=== PATIENT | female | born 1970 | race Caucasian/White ===

== ENCOUNTER 2018-04-16 12:05 | Inpatient (IN) | payer MEDICARE, SELFPAY ==
[2018-04-16 12:59] LABS: HEMATOCRIT 53.8 % (36.0-47.0); HEMOGLOBIN 17.8 g/dl (12.0-15.5); MEAN CORPUSCULAR HEMOGLOBIN 31.3 pg (27.0-33.0); MEAN CORPUSCULAR HGB CONC 33.1 g/dl (32.0-36.5); MEAN CORPUSCULAR VOLUME 94.6 fl (80.0-96.0); PLATELET COUNT, AUTOMATED 199 10^3/uL (150-450); RED BLOOD COUNT 5.69 10^6/uL (4.00-5.40); RED CELL DISTRIBUTION WIDTH 13.7 % (11.5-14.5); WHITE BLOOD COUNT 12.7 10^3/uL (4.0-10.0)
[2018-04-16 13:26] LABS: CONTROL LINE HCG INT CTR LINE PRESENT; HCG, SERUM QUALITATIVE NEGATIVE (NEGATIVE)
[2018-04-16 13:33] LABS: AMPHETAMINES LEVEL URINE NEGATIVE (NEGATIVE); BARBITURATES URINE NEGATIVE (NEGATIVE); BENZODIAZEPINES URINE NEGATIVE (NEGATIVE); CANNABINOIDS URINE NEGATIVE (NEGATIVE); COCAINE METABOLITE URINE NEGATIVE (NEGATIVE); METHADONE URINE NEGATIVE (NEGATIVE); OPIATES URINE NEGATIVE (NEGATIVE); PHENCYCLIDINE URINE NEGATIVE (NEGATIVE)
[2018-04-16 14:02] LABS: ACETAMINOPHEN LEVEL < 2.0 UG/ML (10.0-30.0); ALBUMIN/GLOBULIN RATIO 1.25 (1.00-1.93); ALKALINE PHOSPHATASE 82 U/L (45-117); ALT/SGPT 36 U/L (12-78); ANION GAP 8 MEQ/L (8-16); AST/SGOT 16 U/L (7-37); BILIRUBIN,DIRECT 0.1 MG/DL (0.0-0.2); BILIRUBIN,TOTAL 0.4 MG/DL (0.2-1.0); BLOOD UREA NITROGEN 8 MG/DL (7-18); CALCIUM LEVEL 8.4 MG/DL (8.5-10.1); CARBON DIOXIDE LEVEL 28 MEQ/L (21-32); CHLORIDE LEVEL 104 MEQ/L (98-107); CREATININE FOR GFR 0.85 MG/DL (0.55-1.30); ETHYL ALCOHOL (ETHANOL) < 0.003 % (0.000-0.010); GLOMERULAR FILTRATION RATE > 60.0 (>58); GLUCOSE, FASTING 102 MG/DL (70-100); POTASSIUM SERUM 3.8 MEQ/L (3.5-5.1); SALICYLATE LEVEL 5.8 MG/DL (5.0-30.0); SODIUM LEVEL 140 MEQ/L (136-145); THYROID STIMULATING HORMONE 0.402 uIU/ML (0.358-3.740); TOTAL PROTEIN 7.2 GM/DL (6.4-8.2)
[2018-04-16] MEDS ORDERED: MAALOX 30 ML SUSP *UDC PO (16:45)
[2018-04-16] MEDS ORDERED: ACETAMINOPHEN TAB 650MG DOSE (2X325MG) PO (16:45)
[2018-04-16] MEDS ORDERED: traZODone 50 MG TAB PO (16:45)
[2018-04-16] MEDS ORDERED: MOM 30ML SUSPENSION UDC PO (16:45)
[2018-04-16] MEDS: ADVAIR HFA 115/21MCG INHALER INH (21:00)
[2018-04-17] MEDS: ADVAIR HFA 115/21MCG INHALER INH ×4 (00:22→20:58)
[2018-04-17] MEDS ORDERED: ALBUTEROL 90 MCG/ACT 8GM HFA INHALER INH (10:15)
[2018-04-17 11:57] LABS: KETONE, URINE AUTO RFX NEGATIVE (NEGATIVE); MUCUS, URINE RFX SMALL (NEGATIVE); NITRITE, URINE AUTO RFX NEGATIVE (NEGATIVE); RBC, URINE AUTO RFX 4 /HPF (0-3); SPECIFIC GRAVITY UR AUTO RFX 1.002 (1.002-1.035); SQUAM EPITHELIAL CELL UR AURFX 4 /HPF (0-6); WBC, URINE AUTO RFX 5 /HPF (0-3)
[2018-04-17 11:59] LABS: LEUKOCYTE ESTERASE UR AUTO RFX 2+ (NEGATIVE)
[2018-04-17 13:34] LABS: CHLAMYDIA DNA AMPLIFICATION NEGATIVE (NEGATIVE); GC DNA AMPLIFICATION NEGATIVE (NEGATIVE)
[2018-04-17] MEDS ORDERED: OLANZapine ORAL DISINTEGRATING TAB 5MG PO (15:30)
[2018-04-17] MEDS: PALIPERIDONE 3 MG ER TAB (INVEGA) PO (20:59)
[2018-04-18 07:25] LABS: HEMOGLOBIN 16.5 g/dl (12.0-15.5); MEAN CORPUSCULAR HEMOGLOBIN 31.2 pg (27.0-33.0); MEAN CORPUSCULAR VOLUME 94.5 fl (80.0-96.0); PLATELET COUNT, AUTOMATED 182 10^3/uL (150-450); RED BLOOD COUNT 5.29 10^6/uL (4.00-5.40); RED CELL DISTRIBUTION WIDTH 13.8 % (11.5-14.5); WHITE BLOOD COUNT 9.5 10^3/uL (4.0-10.0)
[2018-04-18 07:56] LABS: ALBUMIN 3.7 GM/DL (3.2-5.2); ALBUMIN/GLOBULIN RATIO 1.28 (1.00-1.93); ALKALINE PHOSPHATASE 73 U/L (45-117); ALT/SGPT 33 U/L (12-78); ANION GAP 8 MEQ/L (8-16); AST/SGOT 16 U/L (7-37); BILIRUBIN,TOTAL 0.5 MG/DL (0.2-1.0); BLOOD UREA NITROGEN 10 MG/DL (7-18); CARBON DIOXIDE LEVEL 27 MEQ/L (21-32); CHLORIDE LEVEL 107 MEQ/L (98-107); GLOMERULAR FILTRATION RATE > 60.0 (>58); GLUCOSE, FASTING 95 MG/DL (70-100); POTASSIUM SERUM 4.4 MEQ/L (3.5-5.1); SODIUM LEVEL 142 MEQ/L (136-145); TOTAL PROTEIN 6.6 GM/DL (6.4-8.2)
[2018-04-18] MEDS: ADVAIR HFA 115/21MCG INHALER INH ×2 (09:04→20:38)
[2018-04-18] MEDS: PALIPERIDONE 3 MG ER TAB (INVEGA) PO ×2 (09:04→20:38)
[2018-04-19] MEDS: PALIPERIDONE 3 MG ER TAB (INVEGA) PO ×2 (08:03→22:27)
[2018-04-19] MEDS: ADVAIR HFA 115/21MCG INHALER INH ×2 (08:03→22:28)
[2018-04-19] MEDS: LORazepam 1 MG TAB PO (09:20)
[2018-04-19 10:12] LABS: HEPATITIS B SURFACE ANTIGEN NEGATIVE (NEGATIVE)
[2018-04-19 10:31] LABS: HEPATITIS C VIRUS ABY INDEX 0.1 INDEX (<0.8)
[2018-04-19 10:32] LABS: HEPATITIS B CORE ANTIBODY IGM NEGATIVE (NEGATIVE); HIV 1&2 SCREEN CENTAUR NEGATIVE (NEGATIVE)
[2018-04-19 10:33] LABS: HEPATITIS A ANTIBODY IGM NEGATIVE (NEGATIVE)
[2018-04-19] MEDS: PALIPERIDONE PALMITATE 234 MG/1.5 ML INJ (INVEGA SUSTENNA)(J2426) IM (11:44)
[2018-04-20] MEDS: ADVAIR HFA 115/21MCG INHALER INH ×2 (08:58→21:02)
[2018-04-20] MEDS: PALIPERIDONE 3 MG ER TAB (INVEGA) PO ×2 (08:58→21:01)
[2018-04-20] MEDS: HYDROCORTISONE 1% CREAM 30 GM TOP (21:33)
[2018-04-21] MEDS: PALIPERIDONE 3 MG ER TAB (INVEGA) PO ×2 (08:29→20:32)
[2018-04-21] MEDS: ADVAIR HFA 115/21MCG INHALER INH ×2 (08:29→20:33)
[2018-04-22] MEDS: ADVAIR HFA 115/21MCG INHALER INH ×2 (08:41→21:06)
[2018-04-22] MEDS: PALIPERIDONE 3 MG ER TAB (INVEGA) PO ×2 (08:41→21:06)
[2018-04-23] MEDS: ADVAIR HFA 115/21MCG INHALER INH ×2 (08:06→20:15)
[2018-04-23] MEDS: PALIPERIDONE 3 MG ER TAB (INVEGA) PO ×2 (08:06→20:15)
[2018-04-23] MEDS: HYDROCORTISONE 1% CREAM 30 GM TOP (13:29)
[2018-04-24] MEDS: PALIPERIDONE 3 MG ER TAB (INVEGA) PO (08:03)
[2018-04-24] MEDS: ADVAIR HFA 115/21MCG INHALER INH (08:03)
[2018-04-24] MEDS: HYDROCORTISONE 1% CREAM 30 GM TOP (08:03)
[2018-04-24] MEDS: PALIPERIDONE PALMITATE 156 MG/1ML INJ(INVEGA SUSTENNA)(J2426) IM (10:09)
== END 2018-04-24 13:45 | disposition home or self-care (01) | DRG 885 ==
LOC: M PSY 04-17 15:41 → M ED 12:05 → M ED INP 16:32 → M PSY 17:14
DX: F25.9 Schizoaffective disorder, unspecified (principal); Z68.41 Body mass index [BMI] 40.0-44.9, adult; Z88.8 Allergy status to other drugs, medicaments and biological substances; G47.00 Insomnia, unspecified; F17.200 Nicotine dependence, unspecified, uncomplicated; J45.909 Unspecified asthma, uncomplicated; F31.9 Bipolar disorder, unspecified; D72.829 Elevated white blood cell count, unspecified; E66.9 Obesity, unspecified

== ENCOUNTER 2021-06-15 17:23 | Inpatient (IN) | payer MEDICARE, OTHER, SELFPAY ==
[~2021-06-15] VITALS: Ht 157.5 cm; Wt 87.7 kg
[~2021-06-15 17:23] MED LIST: ABIL10TA9 PO; BREO1INH3 INH; INVE234I IM; LAMI25TA PO; ZOLO50TA PO
[2021-06-15] MEDS ORDERED: OLANZapine ORAL DISINTEGRATING TAB 5MG PO ONE (18:00)
[2021-06-15 18:28] LABS: HEMATOCRIT 50.9 % (36.0-47.0); MEAN CORPUSCULAR HEMOGLOBIN 31.5 pg (27.0-33.0); MEAN CORPUSCULAR HGB CONC 33.4 g/dl (32.0-36.5); MEAN CORPUSCULAR VOLUME 94.3 fl (80.0-96.0); PLATELET COUNT, AUTOMATED 200 10^3/uL (150-450); WHITE BLOOD COUNT 10.5 10^3/uL (4.0-10.0)
[2021-06-15 19:00] LABS: ACETAMINOPHEN LEVEL < 2.0 UG/ML (10.0-30.0); ALBUMIN 3.7 GM/DL (3.2-5.2); ALT/SGPT 29 U/L (12-78); BILIRUBIN,DIRECT 0.1 MG/DL (0.0-0.2); BILIRUBIN,TOTAL 0.4 MG/DL (0.2-1.0); BLOOD UREA NITROGEN 11 MG/DL (7-18); CALCIUM LEVEL 8.9 MG/DL (8.5-10.1); CARBON DIOXIDE LEVEL 29 MEQ/L (21-32); CHLORIDE LEVEL 106 MEQ/L (98-107); CREATININE FOR GFR 0.76 MG/DL (0.55-1.30); ETHYL ALCOHOL (ETHANOL) < 0.003 % (0.000-0.010); GLOMERULAR FILTRATION RATE > 60.0 (>51); GLUCOSE, FASTING 86 MG/DL (70-100); POTASSIUM SERUM 3.7 MEQ/L (3.5-5.1); SALICYLATE LEVEL 5.7 MG/DL (5.0-30.0); SODIUM LEVEL 141 MEQ/L (136-145); THYROID STIMULATING HORMONE 0.547 uIU/ML (0.358-3.740); TOTAL PROTEIN 6.9 GM/DL (6.4-8.2)
[2021-06-15 20:44] LABS: AMPHETAMINES LEVEL URINE NEGATIVE (NEGATIVE); BARBITURATES URINE NEGATIVE (NEGATIVE); BENZODIAZEPINES URINE NEGATIVE (NEGATIVE); CANNABINOIDS URINE NEGATIVE (NEGATIVE); COCAINE METABOLITE URINE NEGATIVE (NEGATIVE); METHADONE URINE NEGATIVE (NEGATIVE); OPIATES URINE NEGATIVE (NEGATIVE); PHENCYCLIDINE URINE NEGATIVE (NEGATIVE)
[2021-06-15 20:52] LABS: RSV AMPLIFICATION NEGATIVE (NEGATIVE)
[2021-06-15] MEDS ORDERED: traZODone 50 MG TAB PO PRN (21:30)
[2021-06-15] MEDS ORDERED: OLANZapine ORAL DISINTEGRATING TAB 5MG PO PRN (21:30)
[2021-06-15] MEDS ORDERED: MAALOX 30 ML SUSP *UDC PO PRN (21:30)
[2021-06-15] MEDS ORDERED: ACETAMINOPHEN TAB 650MG DOSE (2X325MG) PO PRN (21:30)
[2021-06-15] MEDS ORDERED: MOM 30ML SUSPENSION UDC PO PRN (21:30)
--- NOTE | 2021-06-16 08:22 | MHHPEPDOC ---
General Date Of Admission: Jun 16, 2021 Legal Status: 9.39 Chief Complaint "why am I here" History of Present Illness HISTORY OF THE PRESENT ILLNESS: Patient is a 50 -year-old , female, who why a history of bipolar disorder, schizoaffective disorder and multiple inpatient admissions to [facility], last admission Apr 24 2018 for 4-5 days for acute psychosis. Patient is tangential, disorganized and paranoid on interview. States she called the police to report a crime, "it's too entailed for you to listen to, has to do with origins of covid, the police selling secrets". "There was a terrorist cell operating out of [facility]". Patient goes on to discuss multiple conspiracy theories and poorly cooperative to interview. Psychiatric Review of Systems Diane (4 or more days of): grandiosity Psychosis: auditory hallucination, visual hallucination, delusions, paranoia, disorganization Past Psychiatric History Previous Psychiatric Diagnosis: schizoaffective disorder Previous Psychiatric Admissions: Suicide Attempts: . Psychiatric Follow-up: "I don't, I don't want" Psychiatric medications: . t Psychiatric History Previous Psychiatric Diagnosis: schizoaffective d/o Previous Psychiatric Admissions: multiple admissions to various units in the past [facility] twice in 2017 for psychosis Suicide Attempts: none known Psychiatric Follow-up: javi , non-compliant Psychiatric medications: abilify per but non-compliant 6 months Past Medical History Medical Problems hx perforated diverticulitis, asthma Head Injury: No Seizures: No Hospitalizations: Yes Surgeries: Yes Family Medical/Psychiatric HX Medical Problems non-contributory Psychiatric Disorders: No Addiction: No Suicide Attemps/Completions: No Addiction History nicotine, cocaine (hx per chart review) Social History Per chart review, Dr Sosa, H and P 2018: "Childhood: raised [place] Abuse/Trauma: none known Current Living Situation: lives with near [facility] Education: high school edu Employment: [employer] Social Support: Legal: none known Marital: , no kids" per care summary Lives in [facility] and single. Mental Status Examination General Appearance: unkempt Build: overweight Demeanor: mistrustful, preoccupied, guarded Eye Contact: intense Activity: agitated, anxious Behavior: uncooperative, resistant, agitated Speech: spontaneous Mood: anxious, angry Affect: labile, hostile, disorganized Thought Process: tangential, racing Thought Content (Delusions): grandiose, persecutory, somatic, paranoia, delusions Thought Content (Other): preoccupied, guarded, phobic Thought Content (Aggressive): none reported Perception (Hallucinations): none reported Perception (Other): none reported Cognition (Impairment of): ability to abstract Cognition(Intelligence Est.): average Oriented: Awake, Alert, Oriented times three Insight: poor Judgment: Poor Psychosis: Psychotic Perceptions Diagnoses Schizoaffective disorder per hx Tobacco use disorder A-FIB/CHADSVASC A-FIB History Current/History of A-Fib/PAF?: No Current PO Anticoag Therapy: No Age/Risk Factor Scoring CHADSVASC: CHADSVASC Response (Comments) Value Age Risk Factor Age < 65 years old 0 Gender Risk Factor Female 1 Hx of CHF No 0 Hx of HTN No 0 Hx of Stroke/TIA/or VTE No 0 Hx of Diabetes No 0 Hx of Vascular Disease No 0 Total 1 Treatment Treatment ordered: NONE Reason Anticoagulant not given: Other (defer to hospitalist team) Other reason anticoagulant not: defer to hospitalist team Assessment Likely decompensation in context of non-compliance with outpatient treatment/medications. Initial Treatment Plan 1. Patient was admitted on a [9.39] status. 2. Complete history was obtained. 3. With patients permission, family will be contacted and database will be expanded. 4. Patients medication regimen will be reviewed and changed accordingly. 5. Patient will be provided with protected environment. 6. Patient will be treated with individual, group, and milieu therapies. 7. Patient will receive supportive psych-education. 8. Discharge planning will commence immediately. 9. Outpatient follow-up treatment will be strongly recommended. 10. The initial treatment plan will focus initially on: * Depression. * Risk for suicide. ESTIMATED LENGTH OF STAY: 5-10 DAYS. TIME SPENT COUNSELING AND COORDINATING INITIAL CARE: 60 minutes. Tobacco Cessation Screen If Patient is a Smoker yes Tobacco Cessation Tx Ordered?: Yes Ordered/Pending Vital Signs Vital Signs Date Time Temp Pulse Resp B/P (MAP) Pulse Ox O2 Delivery O2 Flow Rate FiO2 06/16/21 03:21 97.4 89 20 135/88 (104) 99 Room Air Laboratory Data 24H Labs Laboratory Tests 2 06/15/21 18:19: Nucleated Red Blood Cells % (auto) 0.0, Anion Gap 6L, Glomerular Filtration Rate > 60.0, Calcium Level 8.9, Total Bilirubin 0.4, Direct Bilirubin 0.1, Aspartate Amino Transf (AST/SGOT) 14, Alanine Aminotransferase (ALT/SGPT) 29, Alkaline Phosphatase 89, Total Protein 6.9, Albumin 3.7, Albumin/Globulin Ratio 1.2, Thyr oid Stimulating Hormone (TSH) 0.547, Salicylates Level 5.7, Acetaminophen Level < 2.0L, Ethyl Alcohol Level < 0.003 06/15/21 19:54: Urine Opiates Screen NEGATIVE, Urine Methadone Screen NEGATIVE, Urine Barbiturates Screen NEGATIVE, Urine Phencyclidine Screen NEGATIVE, Urine Amp hetamines Screen NEGATIVE, Urine Benzodiazepines Screen NEGATIVE, Urine Cocaine Metabolite Screen NEGATIVE, Urine Cannabinoids Screen NEGATIVE 06/15/21 19:55: Coronavirus (COVID-19)(PCR) NEGATIVE, Influenza Type A (RT-PCR) NEGATIVE, Influenza Type B (RT-PCR) NEGATIVE, Respiratory Syncytial Virus (PCR) NEGATIVE CBC/BMP Laboratory Tests 06/15/21 18:19 Medications Scheduled Fluticasone/Vilanterol (Breo Ellipta 200-25 Mcg INH) 1 Inh Inh, 1 PUFF INH DAILY, (Reported) Paliperidone Palmitate (Invega Sustenna) 234 Mg/1.5 Ml Inj, 234 MG IM QMONTH for psychosis Allergies Coded Allergies: quetiapine (Unverified Allergy, Unknown, 06/15/21) TIM SCHMITT MD Jun 16, 2021 08:22
[2021-06-16] MEDS: NICOTINE 21MG/24HR 1 EA TRANSDERMAL TD SCH (09:00)
[2021-06-16 17:10] VITALS: BP 130/71
--- NOTE | 2021-06-16 18:57 | HPEPDOC ---
[facility] Medical History & Physical Date of Admission Jun 16, 2021 Date of Service: Jun 16, 2021 History and Physical CHIEF COMPLAINT: psychosis HISTORY OF PRESENT ILLNESS: Patient is a 50-year-old female with a past medical history of bipolar disorder and schizoaffective disorder with a history of frequent admissions for psychiatric issues. Patient is not particularly forthcoming during my examination denies prior medical or surgical history. I feel that she is quite suspicious of me during my examination. Patient denies any chest pain, palpitations, nausea, vomiting, diarrhea, fevers or chills. PAST MEDICAL HISTORY: Schizoaffective Bipolar disorder PAST SURGICAL HISTORY: Tubal ligation SOCIAL HISTORY: History of cocaine use per chart review Patient is an active daily smoker Denies alcohol use FAMILY HISTORY: Patient reports heart disease diabetes and lung disease in her family ALLERGIES: Please see below. REVIEW OF SYSTEMS: 10 point ROS conducted, relevant findings are noted in the HPI HOME MEDICATIONS: Please see below. PHYSICAL EXAMINATION: VITAL SIGNS: please see below General: NAD, comfortable HEENT: PERRLA, EOMI, sclerae clear Neck: supple, normal ROM, no JVD Respiratory: lungs CTAB, no wheeze, no rales, no crackles CVS: RRR, normal S1, S2, no murmurs Abdo: soft, no masses, no hepatosplenomegaly, BS+, no rebound tenderness Extremities: no edema, pulses 2+ MSK: no joint deformities, normal ROM Neuro: no focal neuro deficits, moving all 4 extremities, CN2-12 intact. Strength 5/5 in all 4 extremities. No nystagmus. Psych: calm, cooperative, AAO x 3 LABORATORY DATA: See below. MICROBIOLOGY: Please see below. ASSESSMENT: Patient is a 50-year-old female with a past medical history of bipolar disorder and schizoaffective disorder with a history of frequent admissions for psychiatric issues. Patient is not particularly forthcoming during my examination denies prior medical or surgical history. I feel that she is quite suspicious during my examination. Patient denies any chest pain palpitations nausea vomiting diarrhea fevers or chills. . PLAN: Acute psychosis: Per psychiatry Leukocytosis: WBC elevated 10.5. Patient denies any physical symptoms, no cough, no dysuria, no suprapubic tenderness, no increased frequency. We will repeat in the morning. Thank you for consulting us please reconsult as needed. Vital Signs Vital Signs Date Time Temp Pulse Resp B/P (MAP) Pulse Ox O2 Delivery O2 Flow Rate FiO2 06/16/21 17:10 98.3 81 18 130/71 (90) 95 Room Air Laboratory Data Labs 24H Laboratory Tests 2 06/15/21 19:54: Urine Opiates Screen NEGATIVE, Urine Methadone Screen NEGATIVE, Urine Barbiturates Screen NEGATIVE, Urine Phencyclidine Screen NEGATIVE, Urine Amphetamines Screen NEGATIVE, Urine Benzodiazepines Screen NEGATIVE, Urine Cocaine Metabolite Screen NEGATIVE, Urine Cannabinoids Screen NEGATIVE 06/15/21 19:55: Coronavirus (COVID-19)(PCR) NEGATIVE, Influenza Type A (RT-PCR) NEGATIVE, Influenza Type B (RT-PCR) NEGATIVE, Respiratory Syncytial Virus (PCR) NEGATIVE Home Medications Scheduled Fluticasone/Vilanterol (Breo Ellipta 200-25 Mcg INH) 1 Inh Inh, 1 PUFF INH DAILY Paliperidone Palmitate (Invega Sustenna) 234 Mg/1.5 Ml Inj, 234 MG IM QMONTH for psychosis Allergies Coded Allergies: quetiapine (Unverified Allergy, Unknown, 06/15/21) A-FIB/CHADSVASC A-FIB History Current/History of A-Fib/PAF?: No Age/Risk Factor Scoring CHADSVASC: CHADSVASC Response (Comments) Value Age Risk Factor Age < 65 years old 0 Gender Risk Factor Female 1 Hx of CHF No 0 Hx of HTN No 0 Hx of Stroke/TIA/or VTE No 0 Hx of Diabetes No 0 Hx of Vascular Disease No 0 Total 1 JOSÉ MIGUEL ADAMS MD Jun 16, 2021 18:57
[2021-06-16] MEDS: risperiDONE 1 MG TAB PO SCH (20:50)
[2021-06-16] MEDS ORDERED: PALIPERIDONE 3 MG ER TAB (INVEGA) PO SCH (21:00)
[2021-06-17 06:31] VITALS: BP 150/90
[2021-06-17] MEDS: NICOTINE 21MG/24HR 1 EA TRANSDERMAL TD SCH (08:30)
--- NOTE | 2021-06-17 09:56 | MHIPNPDOC ---
[facility] Progress Note Progress Note DATE OF SERVICE: 06/17/21 HISTORY: Patient is a 50 -year-old , female, who why a history of bipolar disorder, schizoaffective disorder and multiple inpatient admissions to [facility], last admission Apr 24 2018 for 4-5 days for acute psychosis. Patient is tangential, disorganized and paranoid on interview. States she called the police to report a crime, "it's too entailed for you to listen to, has to do with origins of covid, the police selling secrets". "There was a terrorist cell operating out of [facility]". Patient goes on to discuss multiple conspiracy theories and poorly cooperative to interview. Interval: Patient states she is doing fine, then goes on asking why she is in the hospital for mental illness "there's nothing wrong with me, states she is irritable and then asked what the test data developer new about her symptoms as police psychiatrist, states she is currently being harassed by the police and that she was not giving enough answers about why she came in, reviewed admission report with patient, despite this states she had a "date with og [place] before 911, since this time Americans have treated my life like sh*t" and goes on to talk about how she knows people of been cloned, and has evidence for these procedures. States she refuses medications, was made aware that if she does not take medications to pursue a court order, continues to be irritable and aggressive interview was ended early. VITAL SIGNS: See below. NEW TEST RESULTS: Urinalysis negative CURRENT MEDICATIONS: See below. MENTAL STATUS EXAMINATION: Patient is a 50-year old female, who is present no acute distress, sitting in chair very irritable intense eye contact, yelling at times Speech: Is increased rate, increased volume increased amount, Language skills are fair Thought processes including: Circumstantial Thought content: Patient highly irritable about being admitted, perseverates on wanting discharge and stated she does not need medications abstract reasoning, and computation: Poor description of associations: poor Description of abnormal or psychotic thoughts: Patient highly paranoid Judgment: Poor Insight: Poor Orientation: Times 3 Recent and remote memory: Fair Attention span and concentration: Fair Language: chilean Fund of knowledge: average Mood: "mad" Affect: Paranoid, angry, irritable, grandiose DIAGNOSES: Schizoaffective disorder per hx Tobacco use disorder ASSESSMENT: Patient continues to refuse medications, will pursue TOO, order placed, note in place, pending other provider review. Patient continues to be grossly psychotic and disorganized, primarily paranoid with grandiose delusions. He is extended stay for acute stabilization. Ended meeting early due to patient becoming increasingly hostile and aggressive verbally. MANAGEMENT PLAN: Patient needs continued stay in hospital for safety, continue medications, patient refusing medications. TIME SPENT: 20 minutes. Vital Signs Vital Signs Date Time Temp Pulse Resp B/P (MAP) Pulse Ox O2 Delivery O2 Flow Rate FiO2 06/17/21 08:01 Room Air 06/17/21 06:31 98.2 77 20 150/90 (110) 95 Laboratory Data 24H Labs Laboratory Tests 2 06/16/21 20:32: Urine Color STRAW, Urine Appearance CLEAR, Urine pH 5.0, Urine Specific [place] 1.005, Urine Protein NEGATIVE, Urine Glucose (UA) NEGATIVE, Urine Ketones NEGATIVE, Urine Blood NEGATIVE, Urine Nitrite NEGATIVE, Urine Bilirubin NEGATIVE, Urine Urobilinogen 0.2, Urine Leukocyte Esterase TRACEH, Urine WBC (Auto) 1, Urine RBC (Auto) 0, Urine Hyaline Casts (Auto) 0, Urine Bacteria (Auto) NEGATIVE, Urine Squamous Epithelial Cells 2, Urine Sperm (Auto) Current Medications Current Medications Medications (Trade) Dose Ordered Sig/Master Route PRN Reason Start Time Stop Time Status Last Admin Dose Admin Acetaminophen (Tylenol Tab) 650 mg Q6HP PRN PO HEADACHE or MILD DISCOMFORT 06/15/21 21:30 Al Hydrox/Mg Hydrox/Simethicone (Mylanta) 30 ml Q4HP PRN PO HEARTBURN/INDIGESTION 06/15/21 21:30 Magnesium Hydroxide (Milk Of Magnesia) 30 ml DAILYPRN PRN PO CONSTIPATION 06/15/21 21:30 Nicotine (Nicoderm Cq 21mg) 1 patch DAILY TD 06/16/21 09:00 Olanzapine (ZyPREXA ZYDIS) 10 mg Q4HP PRN PO AGITATION/ANXIETY 06/15/21 21:30 Paliperidone (Invega) 3 mg QHS PO 06/16/21 21:00 Cancel Risperidone (RisperDAL) 1 mg QHS PO 06/16/21 21:00 Trazodone HCl (Desyrel) 50 mg QHSP PRN PO INSOMNIA 06/15/21 21:30 Allergies Coded Allergies: quetiapine (Unverified Allergy, Unknown, 06/15/21) TIM SCHMITT MD Jun 17, 2021 09:56
--- NOTE | 2021-06-17 16:24 | REM ---
Date: Jun 17, 2021 EVAL FOR TREAMENT OVER OBJ Evaluation for Treatment Over Objection 2020 Patient: Viki Mancilla MR# [id number] : 1970 DOA: 06/15/21 Legal Status: Involuntary - 9.39 Nearest Relative: Name: Relationship Address 1) [id number] Section I Clinical Assessment: Clinical Summary/ History of present illness: Patient is a 50-year-old woman with extensive history of schizoaffective disorder, bipolar disorder and multiple inpatient admissions to [facility], last admission Apr 24 2018 for 4-5 days for acute psychosis. Patient is tangential, disorganized and paranoid on i nterview. On admission stated she called the police to report a crime, "it's too entailed for you to listen to, has to do with origins of [employer], the police selling secrets". "There was a terrorist cell operating out of [facility]". Patient goes on to discuss multiple conspiracy theories and poorly cooperative to interview. On further interview does endorse that she is involved with having lunch with [place], continues to have grandiose delusions. Refuses medications stating she does not have a mental health condition. She is very irritable and agitated. Patient poses a risk of danger to self and others if not stabilized on psychiatric medications for her primary psychotic disorder. Diagnosis: Schizoaffective disorder, unspecified type Section II- Proposed Treatment: Offer oral medications including Haldol 5-30 milligrams daily, pro lixin 2-25 mg daily, risperidone 0.5- 16 mg daily, Zyprexa 5 to 30 mg daily, Thorazine 5 to 2000 mg daily, paliperidone 3 to 12 mg daily, aripiprazole 10-30 mg daily, lithium 300 to 1200 mg daily, valproic acid 750 to 2000 mg daily. Treatment recommended by treating physician should the patient refuse oral medication regimen as ordered by physician: Begin with short acting intramuscular medications such as Haldol 5mg- 20mg daily, Prolixin 5mg-20mg daily, Zyprexa 5mg-30mg daily or Thorazine 5mg- 400mg daily Introduce long acting intramuscular medications such as Haldol decanoate 50mg-100mg every 2 weeks, Prolixin decanoate 25mg-100mg every 2 weeks, Risperdal Consta 25mg-50mg every 2 weeks or Sustenna 117mg-234mg every 1-3 weeks once appropriate titration of short acting medication has been reached, aripiprazole 400 mg every 3-4 weeks Patient may require a combination of both short and long acting medication during the titration period in order to control symptoms and determine most effective maintenance dosage for long acting medication Medication for EPS including cogentin 1 mg to 6 mg daily, diphenhydramine 25 mg to 300 mg daily oral or IM 1. Reasonable alternative, if any are: None 2. Has the patient been tried on proposed treatment? The patient is currently refusing any psychotropic medications. 3. Has the patient been tried on other treatments? none 5) Anticipated benefits for proposed treatment: Reduction of psychotic/manic symptoms, increased ability to organize his thoughts, reduce agitation, especially in regards to taking his medications. The benefits for the patient taking medications at this early stage will improve acute and custodial prognosis. It will improve her ability to communicate/function without being acutely psychotic, manic, disorganized thinking, paranoia, grandiose delusions. The treatment teams hope is that patient will return to being able to function in the community once stabilized. 6) Reasonably foreseeable adverse effects are: Neuroleptic Malignant Syndrome, tardive Dyskinesia, over-sedation, gynecomastia, sexual side effects, orthostatic hypotension, tardive dyskinesia, acute dystonia, metabolic side effects, weight gain, akathisia, PCOS, pancreatitis, hepatitis, decreased white blood cell counts, risk for Avila-Vitaliy syndrome. 7)Prognosis without treatment is: The patient will remain with current symptoms likely leading to continued exacerbation of illness. She will potentially require additional/continued hospitalization, and the propensity exists that it will be more difficult to bring the patient back to baseline behavior and functioning. Patient will remain at risk of danger to self or others. Section III- Patients capacity: 1) Explained to the patient: ___X___Yes No a)Condition ___X___Yes No b)Proposed treatment ___X____Yes No c)Anticipated benefits of treatment ___X___Yes No d)Risks of adverse effects of treatment ___X___Yes No e)Availability ( if any) of other treatments and comparison of benefits and risks with proposed treatment. ___X____Yes No f)Risk if no treatment ____X___Yes No Patient denies having any psychiatric illness, despite endorsing grandiose delusions on interview, increasingly becoming irritable and agitated, extensive history of mental illness. Patient exhibits grandiose delusions, disorganized thought process, irritable and agitated mood which is labile. 2: State the nature of the patients objections to proposed treatment: This patient does not believe she needs medication, and does not feel he is mentally ill. 3) Patients capacity to make decisions on their treatment. Patient denies that she is mentally ill and believes she does not require medications in context of acute paranoia. Section IV- Likelihood of Dangerous Behavior: 1. The patient is believed to be dangerous to others at the hospital unless treated. ___X___Yes No 2. The patient is believed to likely be dangerous to self if not treated. ____X__Yes No Section V: Any other information or comments: TIM SCHMITT MD Jun 17, 2021 16:24
[2021-06-17] MEDS: risperiDONE 1 MG TAB PO SCH (21:00)
[2021-06-18 06:37] VITALS: BP 141/86
[2021-06-18] MEDS: NICOTINE 21MG/24HR 1 EA TRANSDERMAL TD SCH (09:00)
--- NOTE | 2021-06-18 11:38 | MHIPNPDOC ---
[facility] Progress Note Progress Note DATE OF SERVICE: 06/18/21 HISTORY: Patient is a 50 -year-old , female, who why a history of bipolar disorder, schizoaffective disorder and multiple inpatient admissions to [facility], last admission Apr 24 2018 for 4-5 days for acute psychosis. Patient is tangential, disorganized and paranoid on interview. States she called the police to report a crime, "it's too entailed for you to listen to, has to do with origins of covid, the police selling secrets". "There was a terrorist cell operating out of [facility]". Patient goes on to discuss multiple conspiracy theories and poorly cooperative to interview. Interval: Patient is irritable, yelling stating she has been detained illegally and that there are secret government systems that we need to look into [facility], states she predicted covid outbreak and has seeker information on her phone that she can share with us. Nursing barrow worker helper was present. Was explained to patient that TOO has been started, as she is refusing medications which can help her with paranoia, psychotic symptoms. Patient was poorly cooperative to interview, resistant did not allow for many questions to be asked. VITAL SIGNS: See below. NEW TEST RESULTS: Urinalysis negative CURRENT MEDICATIONS: See below. MENTAL STATUS EXAMINATION: Patient is a 50-year old female, who is present no acute distress, sitting in chair very irritable intense eye contact, yelling at times Speech: Is increased rate, increased volume, increased amount, was yelling for most of interview Language skills are poor Thought processes including: Circumstantial Thought content: Patient highly irritable about being admitted, perseverates on wanting discharge and stated she does not need medications abstract reasoning, and computation: Poor description of associations: poor Description of abnormal or psychotic thoughts: Patient highly paranoid Judgment: Poor Insight: Poor Orientation: Times 3 Recent and remote memory: Fair Attention span and concentration: Fair Language: italian Fund of knowledge: average Mood: "I'm angry, am I not allowed to be angry" Affect: Paranoid, grandiose delusions, inappropriate DIAGNOSES: Schizoaffective disorder per hx Tobacco use disorder ASSESSMENT: No change, patient continues to refuse medications, will pursue TOO, order placed, note in place, pending other provider review. Patient continues to be grossly psychotic and disorganized, primarily paranoid with grandiose delusions. He is extended stay for acute stabilization. Ended meeting early due to patient becoming increasingly hostile and aggressive verbally. MANAGEMENT PLAN: Patient needs continued stay in hospital for safety, continue medications, patient refusing medications. TIME SPENT: 15 minutes. Vital Signs Vital Signs Date Time Temp Pulse Resp B/P (MAP) Pulse Ox O2 Delivery O2 Flow Rate FiO2 06/18/21 08:23 Room Air 06/18/21 06:37 98.3 100 18 141/86 (104) 98 Current Medications Current Medications Medications (Trade) Dose Ordered Sig/Master Route PRN Reason Start Time Stop Time Status Last Admin Dose Admin Acetaminophen (Tylenol Tab) 650 mg Q6HP PRN PO HEADACHE or MILD DISCOMFORT 06/15/21 21:30 Al Hydrox/Mg Hydrox/Simethicone (Mylanta) 30 ml Q4HP PRN PO HEARTBURN/INDIGESTION 06/15/21 21:30 Magnesium Hydroxide (Milk Of Magnesia) 30 ml DAILYPRN PRN PO CONSTIPATION 06/15/21 21:30 Nicotine (Nicoderm Cq 21mg) 1 patch DAILY TD 06/16/21 09:00 Olanzapine (ZyPREXA ZYDIS) 10 mg Q4HP PRN PO AGITATION/ANXIETY 06/15/21 21:30 Paliperidone (Invega) 3 mg QHS PO 06/16/21 21:00 Cancel Risperidone (RisperDAL) 1 mg QHS PO 06/16/21 21:00 Trazodone HCl (Desyrel) 50 mg QHSP PRN PO INSOMNIA 06/15/21 21:30 Allergies Coded Allergies: quetiapine (Unverified Allergy, Unknown, 06/15/21) TIM SCHMITT MD Jun 18, 2021 11:38
[2021-06-18 18:27] VITALS: BP 159/84
[2021-06-18] MEDS: risperiDONE 1 MG TAB PO SCH (21:00)
[2021-06-19 06:40] VITALS: BP 160/81
[2021-06-19] MEDS: NICOTINE 21MG/24HR 1 EA TRANSDERMAL TD SCH (08:42)
--- NOTE | 2021-06-19 11:38 | MHIPNPDOC ---
[facility] Progress Note Progress Note DATE OF SERVICE: 06/19/21 HISTORY: Patient is a 50 -year-old , female, who why a history of bipolar disorder, schizoaffective disorder and multiple inpatient admissions to [facility], last admission Apr 24 2018 for 4-5 days for acute psychosis. Patient is tangential, disorganized and paranoid on interview. States she called the police to report a crime, "it's too entailed for you to listen to, has to do with origins of covid, the police selling secrets". "There was a terrorist cell operating out of [facility]". Patient goes on to discuss multiple conspiracy theories and poorly cooperative to interview. Interval: States "theres a group of men marauding around here to take my assets, they've probably lied to doctors and had discussions behind closed doors" asked me to contact one of the heads at [place] to look up "the [place]isi picture". Continues to be grandiose and paranoid. Refusing medications, denies acute phys ical complaints. Report sleep and appetite is normal. VITAL SIGNS: See below. NEW TEST RESULTS: Urinalysis negative CURRENT MEDICATIONS: See below. MENTAL STATUS EXAMINATION: Patient is a 50-year old female, who is present no acute distress, sitting in chair very irritable intense eye contact, yelling at times Speech: Is increased rate, increased volume, increased amount, was yelling for most of interview Language skills are poor Thought processes including: Circumstantial Thought content: Patient highly irritable about being admitted abstract reasoning, and computation: Poor description of associations: poor Description of abnormal or psychotic thoughts: Patient highly paranoid Judgment: Poor Insight: Poor Orientation: x3 Recent and remote memory: Fair Attention span and concentration: Fair Language: welsh Fund of knowledge: average Mood: "it's all a plan to keep me here" Affect: Continues to be Paranoid, grandiose, irritable, labile mood DIAGNOSES: Schizoaffective disorder per hx Tobacco use disorder ASSESSMENT: Continues to refuses medications, is paranoid with grandiose delusions related to conspiracy theories. Made aware of TOO process. MANAGEMENT PLAN: Patient needs continued stay in hospital for safety, to be started on medications, patient refusing medications. TIME SPENT: 15 minutes. Vital Signs Vital Signs Date Time Temp Pulse Resp B/P (MAP) Pulse Ox O2 Delivery O2 Flow Rate FiO2 06/19/21 06:40 99.1 64 16 160/81 (107) 94 Room Air Current Medications Current Medications Medications (Trade) Dose Ordered Sig/Master Route PRN Reason Start Time Stop Time Status Last Admin Dose Admin Acetaminophen (Tylenol Tab) 650 mg Q6HP PRN PO HEADACHE or MILD DISCOMFORT 06/15/21 21:30 Al Hydrox/Mg Hydrox/Simethicone (Mylanta) 30 ml Q4HP PRN PO HEARTBURN/INDIGESTION 06/15/21 21:30 Magnesium Hydroxide (Milk Of Magnesia) 30 ml DAILYPRN PRN PO CONSTIPATION 06/15/21 21:30 Nicotine (Nicoderm Cq 21mg) 1 patch DAILY TD 06/16/21 09:00 Olanzapine (ZyPREXA ZYDIS) 10 mg Q4HP PRN PO AGITATION/ANXIETY 06/15/21 21:30 Paliperidone (Invega) 3 mg QHS PO 06/16/21 21:00 Cancel Risperidone (RisperDAL) 1 mg QHS PO 06/16/21 21:00 Trazodone HCl (Desyrel) 50 mg QHSP PRN PO INSOMNIA 06/15/21 21:30 Allergies Coded Allergies: quetiapine (Unverified Allergy, Unknown, 06/15/21) TIM SCHMITT MD Jun 19, 2021 11:38
[2021-06-19 16:07] VITALS: BP 140/67
[2021-06-19] MEDS: risperiDONE 1 MG TAB PO SCH (20:02)
[2021-06-20 06:40] VITALS: BP 143/80
[2021-06-20] MEDS: NICOTINE 21MG/24HR 1 EA TRANSDERMAL TD SCH (09:00)
--- NOTE | 2021-06-20 09:36 | MHIPNPDOC ---
[facility] Progress Note Progress Note DATE OF SERVICE: 06/20/21 HISTORY: Patient is a 50 -year-old , female, who why a history of bipolar disorder, schizoaffective disorder and multiple inpatient admissions to [facility], last admission Apr 24 2018 for 4-5 days for acute psychosis. Patient is tangential, disorganized and paranoid on interview. States she called the police to report a crime, "it's too entailed for you to listen to, has to do with origins of covid, the police selling secrets". "There was a terrorist cell operating out of [facility]". Patient goes on to discuss multiple conspiracy theories and poorly cooperative to interview. Interval: "I've gone along to get along all these years, has left me with a bunch of bills left to pay, but prided on myself to not lie, the police have a get rich scheme, thev'e done all sorts of things they will not tell you about, also with some [place] and [employer] stuff, I wasn't even invited to my divorce". Patient continues to be grandiose and delusional, endorses paranoia about police out to get her. Per chart review sleeping 6 hrs nightly, eating normally. Continues to refuse medications, made aware of TOO process. VITAL SIGNS: See below. NEW TEST RESULTS: Urinalysis negative CURRENT MEDICATIONS: See below. MENTAL STATUS EXAMINATION: Patient is a 50-year old female, who is present no acute distress, sitting in chair very irritable intense eye contact Speech: Is increased rate, increased volume, increased amount, was yelling for most of interview Language skills are poor Thought processes including: Circumstantial Thought content: Patient highly irritable about being admitted abstract reasoning, and computation: Poor description of associations: poor Description of abnormal or psychotic thoughts: Patient highly paranoid Judgment: Poor Insight: Poor Orientation: x3 Recent and remote memory: Fair Attention span and concentration: Fair Language: burmese Fund of knowledge: average Mood: "I don't need to be here" Affect: Continues to be paranoid, delusional DIAGNOSES: Schizoaffective disorder per hx Tobacco use disorder ASSESSMENT: Patient continues to be delusional and paranoid, needs continues stay for safety. MANAGEMENT PLAN: No change, patient needs continued stay in hospital for safety, to be started on medications, patient refusing medications. Continue with therapeutic treatments on the unit. TIME SPENT: 15 minutes. Vital Signs Vital Signs Date Time Temp Pulse Resp B/P (MAP) Pulse Ox O2 Delivery O2 Flow Rate FiO2 06/20/21 06:40 98.1 83 20 143/80 (101) 94 Room Air Current Medications Current Medications Medications (Trade) Dose Ordered Sig/Master Route PRN Reason Start Time Stop Time Status Last Admin Dose Admin Acetaminophen (Tylenol Tab) 650 mg Q6HP PRN PO HEADACHE or MILD DISCOMFORT 06/15/21 21:30 Al Hydrox/Mg Hydrox/Simethicone (Mylanta) 30 ml Q4HP PRN PO HEARTBURN/INDIGESTION 06/15/21 21:30 Magnesium Hydroxide (Milk Of Magnesia) 30 ml DAILYPRN PRN PO CONSTIPATION 06/15/21 21:30 Nicotine (Nicoderm Cq 21mg) 1 patch DAILY TD 06/16/21 09:00 Olanzapine (ZyPREXA ZYDIS) 10 mg Q4HP PRN PO AGITATION/ANXIETY 06/15/21 21:30 Paliperidone (Invega) 3 mg QHS PO 06/16/21 21:00 Cancel Risperidone (RisperDAL) 1 mg QHS PO 06/16/21 21:00 Trazodone HCl (Desyrel) 50 mg QHSP PRN PO INSOMNIA 06/15/21 21:30 Allergies Coded Allergies: quetiapine (Unverified Allergy, Unknown, 06/15/21) TIM SCHMITT MD Jun 20, 2021 09:36
[2021-06-20 16:13] VITALS: BP 142/81
[2021-06-20] MEDS: risperiDONE 1 MG TAB PO SCH (20:34)
[2021-06-21 06:36] VITALS: BP 132/84
[2021-06-21] MEDS: NICOTINE 21MG/24HR 1 EA TRANSDERMAL TD SCH (08:19)
--- NOTE | 2021-06-21 09:17 | MHIPNPDOC ---
[facility] Progress Note Progress Note DATE OF SERVICE: 06/21/21 HISTORY: Patient is a 50 -year-old , female, who why a history of bipolar disorder, schizoaffective disorder and multiple inpatient admissions to [facility], last admission Apr 24 2018 for 4-5 days for acute psychosis. Patient is tangential, disorganized and paranoid on interview. States she called the police to report a crime, "it's too entailed for you to listen to, has to do with origins of covid, the police selling secrets". "There was a terrorist cell operating out of [facility]". Patient goes on to discuss multiple conspiracy theories and poorly cooperative to interview. Interval: "The federal officer, I have seen him hanging out with the director of the [facility], he has hands in every hospitalization I've had, I have seen him a vehicle", patient does not want to be filmed on internet despite explanation with not be recorded. States she has police credentials in [place], because somebody told her this. Patient is irritable and paranoid. "I have seen many people down there who look just like me". VITAL SIGNS: See below. NEW TEST RESULTS: none, see below CURRENT MEDICATIONS: See below. MENTAL STATUS EXAMINATION: Patient is a 50-year old female, who is present no acute distress, sitting in chair very irritable intense eye contact Speech: Is increased rate, increased volume, increased amount, continues to be yelling Language skills are poor Thought processes including: tangential, disorganized Thought content: Patient highly irritable about being admitted abstract reasoning, and computation: Poor description of associations: poor Description of abnormal or psychotic thoughts: Patient continues to be highly paranoid Judgment: Poor Insight: Poor Orientation: x3 Recent and remote memory: Fair Attention span and concentration: Fair Language: saudi arabian Fund of knowledge: average Mood: "I get aggravated" Affect: Paranoid, irritable, labile, inappropriate DIAGNOSES: Schizoaffective disorder per hx Tobacco use disorder ASSESSMENT: No change, patient refusing medications, patient continues to be delusional and paranoid, needs continues stay for safety. MANAGEMENT PLAN: No change, patient needs continued stay in hospital for safety to be started on medications, patient refusing medications. Continue with therapeutic treatments on the unit. TIME SPENT: 20 minutes. Vital Signs Vital Signs Date Time Temp Pulse Resp B/P (MAP) Pulse Ox O2 Delivery O2 Flow Rate FiO2 06/21/21 06:36 96.8 79 18 132/84 (100) 95 Room Air Current Medications Current Medications Medications (Trade) Dose Ordered Sig/Master Route PRN Reason Start Time Stop Time Status Last Admin Dose Admin Acetaminophen (Tylenol Tab) 650 mg Q6HP PRN PO HEADACHE or MILD DISCOMFORT 06/15/21 21:30 Al Hydrox/Mg Hydrox/Simethicone (Mylanta) 30 ml Q4HP PRN PO HEARTBURN/INDIGESTION 06/15/21 21:30 Magnesium Hydroxide (Milk Of Magnesia) 30 ml DAILYPRN PRN PO CONSTIPATION 06/15/21 21:30 Nicotine (Nicoderm Cq 21mg) 1 patch DAILY TD 06/16/21 09:00 Olanzapine (ZyPREXA ZYDIS) 10 mg Q4HP PRN PO AGITATION/ANXIETY 06/15/21 21:30 Paliperidone (Invega) 3 mg QHS PO 06/16/21 21:00 Cancel Risperidone (RisperDAL) 1 mg QHS PO 06/16/21 21:00 Trazodone HCl (Desyrel) 50 mg QHSP PRN PO INSOMNIA 06/15/21 21:30 Allergies Coded Allergies: quetiapine (Unverified Allergy, Unknown, 06/15/21) TIM SCHMITT MD Jun 21, 2021 09:17
[2021-06-21 16:34] VITALS: BP 118/61
[2021-06-21] MEDS: risperiDONE 1 MG TAB PO SCH (21:00)
[2021-06-22 06:40] VITALS: BP 122/84
[2021-06-22] MEDS: NICOTINE 21MG/24HR 1 EA TRANSDERMAL TD SCH (09:00)
--- NOTE | 2021-06-22 09:38 | MHIPNPDOC ---
[facility] Progress Note Progress Note DATE OF SERVICE: 06/22/21 Zoom meeting held, made aware of risk of technology breach, refused to be film. HISTORY: Patient is a 50 -year-old , female, who why a history of b ipolar disorder, schizoaffective disorder and multiple inpatient admissions to [facility], last admission Apr 24 2018 for 4-5 days for acute psychosis. Patient is tangential, disorganized and paranoid on interview. States she called the police to report a crime, "it's too entailed for you to listen to, has to do with origins of covid, the police selling secrets". "There was a terrorist cell operating out of [facility]". Patient goes on to discuss multiple conspiracy theories and poorly cooperative to interview. Interval: States she is "sick of beating a horse", states has been labelled to have mental health history. States she does not be filmed, states she is worried it will be hacked and states hackers get into counseling. Continues to be irritable, states got 9 hrs sleep last night, appetite normal. States got rid of "because he would lie to the doctors". Denies [facility]. VITAL SIGNS: See below. NEW TEST RESULTS: none, see below CURRENT MEDICATIONS: See below. MENTAL STATUS EXAMINATION: Patient is a 50-year old female, who is present no acute distress, sitting in chair very irritable intense eye contact Speech: Is increased rate, increased volume, increased amount, continues to be yelling Language skills are poor Thought processes including: tangential, disorganized Thought content: Patient highly irritable about being admitted Abstract reasoning, and computation: Poor description of associations: poor Description of abnormal or psychotic thoughts: Patient continues to be highly paranoid Judgment: Poor Insight: Poor Orientation: x3 Recent and remote memory: Fair Attention span and concentration: Fair Language: latvian Fund of knowledge: average Mood: "aggravated" Affect: Paranoid, labile, irritable DIAGNOSES: Schizoaffective disorder per hx Tobacco use disorder ASSESSMENT: Patient continues to be paranoid, delusional, irritable, states family believes ex- and feels she does not need treatment. MANAGEMENT PLAN: No change, patient needs continued stay in hospital for safety to be started on medications, patient refusing medications, pending TOO after second physician signature. Continue with therapeutic treatments on the unit. TIME SPENT: 20 minutes. Vital Signs Vital Signs Date Time Temp Pulse Resp B/P (MAP) Pulse Ox O2 Delivery O2 Flow Rate FiO2 06/22/21 06:40 97.6 91 18 122/84 (97) 93 Room Air Current Medications Current Medications Medications (Trade) Dose Ordered Sig/Master Route PRN Reason Start Time Stop Time Status Last Admin Dose Admin Acetaminophen (Tylenol Tab) 650 mg Q6HP PRN PO HEADACHE or MILD DISCOMFORT 06/15/21 21:30 Al Hydrox/Mg Hydrox/Simethicone (Mylanta) 30 ml Q4HP PRN PO HEARTBURN/INDIGESTION 06/15/21 21:30 Magnesium Hydroxide (Milk Of Magnesia) 30 ml DAILYPRN PRN PO CONSTIPATION 06/15/21 21:30 Nicotine (Nicoderm Cq 21mg) 1 patch DAILY TD 06/16/21 09:00 Olanzapine (ZyPREXA ZYDIS) 10 mg Q4HP PRN PO AGITATION/ANXIETY 06/15/21 21:30 Paliperidone (Invega) 3 mg QHS PO 06/16/21 21:00 Cancel Risperidone (RisperDAL) 1 mg QHS PO 06/16/21 21:00 Trazodone HCl (Desyrel) 50 mg QHSP PRN PO INSOMNIA 06/15/21 21:30 Allergies Coded Allergies: quetiapine (Unverified Allergy, Unknown, 06/15/21) TIM SCHMITT MD Jun 22, 2021 09:38
[2021-06-22 17:47] VITALS: BP 144/76
[2021-06-22] MEDS: risperiDONE 1 MG TAB PO SCH (21:00)
[2021-06-23 07:02] VITALS: BP 139/70
[2021-06-23] MEDS: NICOTINE 21MG/24HR 1 EA TRANSDERMAL TD SCH (08:10)
--- NOTE | 2021-06-23 10:22 | MHIPNPDOC ---
[facility] Progress Note Progress Note DATE OF SERVICE: 06/23/21 HISTORY: Patient is a 50 -year-old , female, who why a history of bipolar disorder, schizoaffective disorder and multiple inpatient admissions to [facility], last admission Apr 24 2018 for 4-5 days for acute psychosis. Patient is tangential, disorganized and paranoid on interview. States she called the police to report a crime, "it's too entailed for you to listen to, has to do with origins of covid, the police selling secrets". "There was a terrorist cell operating out of [facility]". Patient goes on to discuss multiple conspiracy theories and poorly cooperative to interview. Interval: Patient was seen in the hallway, when asked to speak for one-to-one evaluation states " you are not listening to me and do not believe my stories and they get riled up so I do not want to speak to you today", patient is seen pacing the hallways, appears internally preoccupied and paranoid. Has been going to some groups, has been sleeping 6 hours per chart review. Vital signs stable, see below. Not reporting acute physical complaints. Has not been displaying overt aggression towards others on the unit. We will continue to approach for evaluation. VITAL SIGNS: See below. NEW TEST RESULTS: none, see below CURRENT MEDICATIONS: See below. MENTAL STATUS EXAMINATION: Patient is a 50-year old female, who is present no acute distress, walking in the hallway, very irritable intense eye contact, refuses to meet one-on-one. Speech: Normal rate, volume, spontaneous, on further discussion becomes more irritable with increased rate and volume Language skills are poor Thought processes including: tangential, disorganized Thought content: Not endorsing SI, intent or plan. Not endorsing HI, intent or plan Abstract reasoning, and computation: Poor description of associations: poor Description of abnormal or psychotic thoughts: Patient continues to be paranoid Judgment: Poor Insight: Poor Orientation: x3 Recent and remote memory: Fair Attention span and concentration: Fair Language: qatari Fund of knowledge: average Mood: "You do not care" Affect: Continues to be paranoid, internally preoccupied, labile, irritable DIAGNOSES: Schizoaffective disorder per hx Tobacco use disorder ASSESSMENT: Continues to refuse medications, has been attending some groups, continues to be paranoid, delusional, internally preoccupied. MANAGEMENT PLAN: No change, patient needs continued stay in hospital for safety to be started on medications and stabilized for psychosis, pending TOO hearing after second physician signature. Continue with therapeutic treatments on the unit. TIME SPENT: 15 minutes. Vital Signs Vital Signs Date Time Temp Pulse Resp B/P (MAP) Pulse Ox O2 Delivery O2 Flow Rate FiO2 06/23/21 07:02 98.6 79 16 139/70 (93) 95 Room Air Current Medications Current Medications Medications (Trade) Dose Ordered Sig/Master Route PRN Reason Start Time Stop Time Status Last Admin Dose Admin Acetaminophen (Tylenol Tab) 650 mg Q6HP PRN PO HEADACHE or MILD DISCOMFORT 06/15/21 21:30 Al Hydrox/Mg Hydrox/Simethicone (Mylanta) 30 ml Q4HP PRN PO HEARTBURN/INDIGESTION 06/15/21 21:30 Magnesium Hydroxide (Milk Of Magnesia) 30 ml DAILYPRN PRN PO CONSTIPATION 06/15/21 21:30 Nicotine (Nicoderm Cq 21mg) 1 patch DAILY TD 06/16/21 09:00 Olanzapine (ZyPREXA ZYDIS) 10 mg Q4HP PRN PO AGITATION/ANXIETY 06/15/21 21:30 Paliperidone (Invega) 3 mg QHS PO 06/16/21 21:00 Cancel Risperidone (RisperDAL) 1 mg QHS PO 06/16/21 21:00 Trazodone HCl (Desyrel) 50 mg QHSP PRN PO INSOMNIA 06/15/21 21:30 Allergies Coded Allergies: quetiapine (Unverified Allergy, Unknown, 06/15/21) TIM SCHMITT MD Jun 23, 2021 10:22
[2021-06-23 18:39] VITALS: BP 152/72
[2021-06-23] MEDS: risperiDONE 1 MG TAB PO SCH (21:00)
[2021-06-24] MEDS: NICOTINE 21MG/24HR 1 EA TRANSDERMAL TD SCH (08:42)
--- NOTE | 2021-06-24 11:14 | MHIPNPDOC ---
[facility] Progress Note Progress Note DATE OF SERVICE: 06/24/21 HISTORY: Patient is a 50 -year-old , female, who why a history of bipolar disorder, schizoaffective disorder and multiple inpatient admissions to [facility], last admission Apr 24 2018 for 4-5 days for acute psychosis. Patient is tangential, disorganized and paranoid on interview. States she called the police to report a crime, "it's too entailed for you to listen to, has to do with origins of covid, the police selling secrets". "There was a terrorist cell operating out of [facility]". Patient goes on to discuss multiple conspiracy theories and poorly cooperative to interview. Interval: Patient was talking in the hallway with myself, refuses to go to her room, goes on to explain that she is upset she is lost some eye things in her life due to her previous mental diagnoses and treatments leading to financial troubles and states that the police have been out to get her and make out false statements about her to get her in trouble, this is reportedly despite her going to them about multiple crime she is aware of. She then goes on to ask what evidence has there been that she is not mentally sound. Was explained to her that there is some concern for symptoms of paranoia and that medications may help her with these symptoms. She then becomes frustrated and states she does not want to take medications, again is made aware of pending TOO, procedure and that she will have opportunity to explain herself in front of the superior court judge, at that time it will be determined if she has to take medications to stabilize her condition. VITAL SIGNS: See below. NEW TEST RESULTS: none, see below CURRENT MEDICATIONS: See below. MENTAL STATUS EXAMINATION: Patient is a 50-year old female, who is present no acute distress, walking in the hallway, very irritable intense eye contact, refuses to meet one-on-one. Speech: Normal rate, volume, spontaneous, on further discussion becomes more irritable with increased rate and volume Language skills are poor Thought processes including: tangential, mildly disorganized Thought content: Not endorsing SI, intent or plan. Not endorsing HI, intent or plan Abstract reasoning, and computation: Poor description of associations: poor Description of abnormal or psychotic thoughts: Patient continues to be paranoid, no change Judgment: Poor Insight: Poor Orientation: x3 Recent and remote memory: Fair Attention span and concentration: Fair Language: nepali Fund of knowledge: average Mood: "Angry" Affect: Irritable, paranoid, labile DIAGNOSES: Schizoaffective disorder per hx Tobacco use disorder ASSESSMENT: No change, continues to refuse medications, has been attending some groups, continues to be paranoid, delusional, mildly internally preoccupied. MANAGEMENT PLAN: No change, patient needs continued stay in hospital for safety to be started on medications and stabilized for psychosis, pending TOO hearing after second physician signature. Continue with therapeutic treatments on the u nit. TIME SPENT: 15 minutes. Vital Signs Vital Signs Date Time Temp Pulse Resp B/P (MAP) Pulse Ox O2 Delivery O2 Flow Rate FiO2 06/23/21 18:39 97.9 67 18 152/72 (98) 06/23/21 07:02 95 Room Air Current Medications Current Medications Medications (Trade) Dose Ordered Sig/Master Route PRN Reason Start Time Stop Time Status Last Admin Dose Admin Acetaminophen (Tylenol Tab) 650 mg Q6HP PRN PO HEADACHE or MILD DISCOMFORT 06/15/21 21:30 Al Hydrox/Mg Hydrox/Simethicone (Mylanta) 30 ml Q4HP PRN PO HEARTBURN/INDIGESTION 06/15/21 21:30 Magnesium Hydroxide (Milk Of Magnesia) 30 ml DAILYPRN PRN PO CONSTIPATION 06/15/21 21:30 Nicotine (Nicoderm Cq 21mg) 1 patch DAILY TD 06/16/21 09:00 Olanzapine (ZyPREXA ZYDIS) 10 mg Q4HP PRN PO AGITATION/ANXIETY 06/15/21 21:30 Paliperidone (Invega) 3 mg QHS PO 06/16/21 21:00 Cancel Risperidone (RisperDAL) 1 mg QHS PO 06/16/21 21:00 Trazodone HCl (Desyrel) 50 mg QHSP PRN PO INSOMNIA 06/15/21 21:30 Allergies Coded Allergies: quetiapine (Unverified Allergy, Unknown, 06/15/21) TIM SCHMITT MD Jun 24, 2021 11:14
[2021-06-24 17:47] VITALS: BP 144/83
[2021-06-24] MEDS: risperiDONE 1 MG TAB PO SCH (21:00)
[2021-06-25 06:24] VITALS: BP 138/63
[2021-06-25 09:00] VITALS: BP 123/72
[2021-06-25] MEDS: NICOTINE 21MG/24HR 1 EA TRANSDERMAL TD SCH (09:00)
--- NOTE | 2021-06-25 11:09 | MHIPNPDOC ---
[facility] Progress Note Progress Note DATE OF SERVICE: 06/25/21 HISTORY: Patient is a 50 -year-old , female, who why a history of bipolar disorder, schizoaffective disorder and multiple inpatient admissions to [facility], last admission Apr 24 2018 for 4-5 days for acute psychosis. Patient is tangential, disorganized and paranoid on interview. States she called the police to report a crime, "it's too entailed for you to listen to, has to do with origins of covid, the police selling secrets". "There was a terrorist cell operating out of [facility]". Patient goes on to discuss multiple conspiracy theories and poorly cooperative to interview. Interval: Patient was seen with nursing staff present as watch inspector, patient continues to be highly irritable even when discussing medical treatments including testing for coed as there was an exposure on the unit, despite education and encouragement for safety reasons for herself and others to reduce exposure and health associated risks of covert 19 patient continues to refuse screening testing. Patient made aware would be putting other patients at risk as well as staff. Was explained that we had received testing to ensure her safety from exposure. Continues to refuse medications and groups is seen walking in the hallways, internally preoccupied and highly paranoid. Discussed story of what brought her to the hospital, states she was going from [place] to [facility], when asked about her rationale for doing so becomes angry and hostile stating that the police made her do it, referring to conspiracies that the police are out to get her and take her possessions. Reports sleep continues to be poor, appetite is normal, denies acute physical complaints apart from some sore throat and chest discomfort. Ordered an EKG for screening. Denies other symptoms of neurological changes, peripheral sensation changes, shortness of breath, vital signs remained stable, no fever. VITAL SIGNS: See below. NEW TEST RESULTS: none, see below CURRENT MEDICATIONS: See below. MENTAL STATUS EXAMINATION: Patient is a 50-year old female, who is presently in no acute distress, walking in the hallway, agrees to one-to-one interview today, otherwise is pacing the hallways, highly irritable and agitated, poorly cooperative to interview and resistant to receiving any treatments including screening for coping 19, encouraged to wear a mask, seen wearing mask, staff aware to redirect patient if not wearing mask appropriately, elevated BMI, glasses short dark hair in hospital clothing. Speech: No change, normal rate, volume, spontaneous, on further discussion b ecomes more irritable with increased rate and volume Language skills are poor Thought processes including: Circumstantial, disorganized Thought content: Not endorsing SI, intent or plan. Not endorsing HI, intent or plan Abstract reasoning, and computation: Poor description of associations: poor Description of abnormal or psychotic thoughts: Patient continues to be paranoid, no change Judgment: Poor Insight: Poor Orientation: x3 Recent and remote memory: Fair Attention span and concentration: Fair Language: armenian Fund of knowledge: average Mood: "I am angry would you be failure stuff was taken away from you" Affect: Continues to be agitated, irritable, paranoid, labile, mood congruent, inappropriate DIAGNOSES: Schizoaffective disorder per hx Tobacco use disorder ASSESSMENT: Patient continues to be paranoid, belligerent and agitated with staff, no change, continues to refuse medications or Covid testing, has been attending some groups, continues to be, delusional, mildly internally preoccupied. He is continued stay for acute stabilization, made aware pursuing court process for taking medications, has previously been discussed. MANAGEMENT PLAN: No change, patient needs continued stay in hospital for safety to be started on medications and stabilized for psychosis, pending TOO hearing. Continue with therapeutic treatments on the unit. TIME SPENT: 25 minutes. Vital Signs Vital Signs Date Time Temp Pulse Resp B/P (MAP) Pulse Ox O2 Delivery O2 Flow Rate FiO2 06/25/21 06:24 98.2 72 18 138/63 (88) 95 Room Air Current Medications Current Medications Medications (Trade) Dose Ordered Sig/Master Route PRN Reason Start Time Stop Time Status Last Admin Dose Admin Acetaminophen (Tylenol Tab) 650 mg Q6HP PRN PO HEADACHE or MILD DISCOMFORT 06/15/21 21:30 Al Hydrox/Mg Hydrox/Simethicone (Mylanta) 30 ml Q4HP PRN PO HEARTBURN/INDIGESTION 06/15/21 21:30 Magnesium Hydroxide (Milk Of Magnesia) 30 ml DAILYPRN PRN PO CONSTIPATION 06/15/21 21:30 Nicotine (Nicoderm Cq 21mg) 1 patch DAILY TD 06/16/21 09:00 Olanzapine (ZyPREXA ZYDIS) 10 mg Q4HP PRN PO AGITATION/ANXIETY 06/15/21 21:30 Paliperidone (Invega) 3 mg QHS PO 06/16/21 21:00 Cancel Risperidone (RisperDAL) 1 mg QHS PO 06/16/21 21:00 Trazodone HCl (Desyrel) 50 mg QHSP PRN PO INSOMNIA 06/15/21 21:30 Allergies Coded Allergies: quetiapine (Unverified Allergy, Unknown, 06/15/21) TIM SCHMITT MD Jun 25, 2021 11:09
[2021-06-25] MEDS: risperiDONE 1 MG TAB PO SCH (21:00)
[2021-06-26 07:29] VITALS: BP 155/77
[2021-06-26] MEDS: NICOTINE 21MG/24HR 1 EA TRANSDERMAL TD SCH (08:20)
--- NOTE | 2021-06-26 13:52 | MHDSPDOC ---
[facility] Discharge Summary Discharge Summary DATE OF ADMISSION: Jun 15, 2021 at 21:27 DATE OF DISCHARGE: June 26, 2021 Discharge diagnoses: Schizoaffective disorder per hx Tobacco use disorder Reason for admission: Patient is a 50 -year-old , female, who why a history of bipolar disorder, schizoaffective disorder and multiple inpatient admissions to [facility], last [facility] discharge Apr 24 2018 for 4-5 days for acute psychosis. Per PSA evaluation patient went to the library and contacted police, seeming delusional and floridly psychotic per phone conversation, patient had been reporting th eories of human trafficking theft, terrorism in [facility], police arrived to the library and patient took off in her car with police pursuit due to a suspended license, would not ice puller and eventually police were able to apprehend the patient stated she was going to and tore up [place], was disorganized and grossly psychotic. In the emergency room patient received 10 mg p.o. olanzapine, patient is tangential, disorganized and paranoid on interview. States she called the police to report a crime, "it's too entailed for you to listen to, has to do with origins of covid, the police selling secrets". "There was a terrorist cell operating out of [facility]". Patient goes on to discuss multiple conspiracy theories and poorly cooperative to interview. Patient was unclear if she was following up with her long-acting injectable paliperidone to 234 mg. Vital signs: See below Consultants involved: See medical H&P by hospitalist Treatment and progress on the unit: Patient was admitted to the [facility] on a 9.39 legal status and was afforded the following treatment modalities: 1. Individual therapy 2. Group therapy 3. Medication management 4. Milieu therapy 5. Safe environment Hospital course: Patient was admitted to the [facility] on a 9.39 legal status. Was medically cleared prior to coming up to the [facility]. Received 1 dose 10 mg olanzapine in the emergency room prior to arrival, labs were done and unremarkable, patient was started on 1 mg nightly of risperidone and still continue paliperidone due to his lack of insurance coverage, patient refused this medication during course of stay and remained paranoid and disorganized has been reporting multiple conspiracy theories, that the police were out to get her, the people were stealing things from her and that no one believed her situation, would become irritable in conversation but denied suicidal or homicidal ideations. Patient found medications beneficial and tolerated them well. Denies mood anxiety and intrusive thoughts which improved with treatment. Patient attended groups daily during stay. Patient symptoms improved with treatment. On day of discharge patient denied depression, anxiety, insomnia, suicidal or homicidal ideations intent or plan, hallucinations, delusions. Patient was discharged home with follow-up. Patient felt safe for discharge. Was offered continued stay involuntary admission but refused. Court hearing was carried out for retention on June 26, 2021 and was determined by a hand almond blancher the patient did not meet criteria for continued involuntary admission and should be released, patient refused voluntary admission. This is despite concern exp ressed for patient safety in context of paranoia and illogical, delusional behavior observed on the unit. Prior to discharge patient had been refusing covert testing despite explained exposure and putting herself further patient at risk, but was agreeable to private room with isolation. Patient was prescribed nicotine patch during stay for nicotine cravings but refused. During stay per chart review patient had endorsed multiple bizarre, grandiose delusions during stay such as having "lunch with Bin laden", ex-partner being best friends at the [facility] and out to harm her, reported terrorists operating of [facility] to multiple nursing staff and myself. Discharge assessment: On today's interview patient is alert and oriented, dressed appropriately. Hygiene and grooming is well-kept and wearing glasses. Is irritable on approach and poorly engaged in interview. Denies psychiatric symptoms, but continues to be paranoid and delusional. denies suicidal homicidal ideation, intent or planning. Patient declines further hospitalization on voluntary status, patient encouraged to return the hospital if symptoms worsen or change and encouraged to call unit if they feel they need provider's questions to be answered or help with medications or care. Mental status: Patient is a 50-year old female, who is presently in no acute distress, walking in the hallway. Speech: No change, normal rate, volume, spontaneous, on further discussion becomes more irritable with increased rate and volume Language skills are poor Thought processes including: Circumstantial, disorganized Thought content: Not endorsing SI, intent or plan. Not endorsing HI, intent or plan Abstract reasoning, and computation: Poor description of associations: poor Description of abnormal or psychotic thoughts: Patient continues to be paranoid, no change Judgment: Poor Insight: Poor Orientation: x3 Recent and remote memory: Fair Attention span and concentration: Fair Language: cameroonian Fund of knowledge: average Mood: "upset" Affect: Continues to be paranoid, delusional, irritable, inappropriate Medications on discharge: see medication reconciliation: CSSRS on discharge: Wish to be : No nonspecific active suicidal thoughts: No lifetime attempts: 0 interrupted attempts: 0 aborted attempts: 0 preparatory acts or behavior: None Taking into consideration safety state, status, safety plan, protective factors modifiable, non-modifiable risk factors patient is at chronically elevated risk on discharge for suicide according to [place] suicide evaluation. PLAN/FOLLOWUP ARRANGEMENTS: See social work note for details The amount of time spent in the coordination of care for this patient was approximately 50 minutes. ETOH/Disorder Med Rx ETOH/DRUG DISORDER RX: Offrd @ d/c & pt refused Vital Signs/I&Os Vital Signs Date Time Temp Pulse Resp B/P (MAP) Pulse Ox O2 Delivery O2 Flow Rate FiO2 06/26/21 07:29 98.3 75 20 155/77 (103) 94 Room Air Laboratory Data Microbiology Microbiology 06/16/21 Urine Culture - Final, Complete Medications Scheduled Fluticasone/Vilanterol (Breo Ellipta 200-25 Mcg INH) 1 Inh Inh, 1 PUFF INH DAILY, (Reported) Paliperidone Palmitate (Invega Sustenna) 234 Mg/1.5 Ml Inj, 234 MG IM QMONTH for psychosis, #1 Allergies Coded Allergies: quetiapine (Unverified Allergy, Unknown, 06/15/21) TIM SCHMITT MD Jun 26, 2021 13:52
--- NOTE | 2021-06-26 14:59 | MHIPNPDOC ---
[facility] Progress Note Progress Note DATE OF SERVICE: 06/26/21 HISTORY: Patient is a 50 -year-old , female, who why a history of bipolar disorder, schizoaffective disorder and multiple inpatient admissions to [facility], last admission Apr 24 2018 for 4-5 days for acute psychosis. Patient is tangential, disorganized and paranoid on interview. States she called the police to report a crime, "it's too entailed for you to listen to, has to do with origins of covid, the police selling secrets". "There was a terrorist cell operating out of [facility]". Patient goes on to discuss multiple conspiracy theories and poorly cooperative to interview. Interval: Patient continues to be irritable, paranoid, refusing medications and requesting discharge, was seen in court and retention was granted. Patient continues to denies SI or HI or acute physical complaints. Continues to be educated on the need for medication to stabilize condition for safe discharge and to work with myself and social work so that we can obtain collateral to gain a better understanding of her situation and how we can treat her effectively. Went to 1 group on June 24, 2021, VITAL SIGNS: See below. NEW TEST RESULTS: none, see below CURRENT MEDICATIONS: See below. MENTAL STATUS EXAMINATION: Patient is a 50-year old female, who is presently in no acute distr ess, walking in the hallway, wears mask, elevated BMI, glasses short dark hair in hospital clothing. Speech: No change, normal rate, increased volume, spontaneous, increased amount, difficult to interrupt Language skills are poor Thought processes including: Circumstantial, mildly disorganized Thought content: Not endorsing SI, intent or plan. Not endorsing HI, intent or plan Abstract reasoning, and computation: Poor description of associations: poor Description of abnormal or psychotic thoughts: Patient continues to be paranoid, no change Judgment: Poor Insight: Poor Orientation: x3 Recent and remote memory: Fair Attention span and concentration: Fair Language: kinyarwanda Fund of knowledge: average Mood: "angry, nobody listens" Affect: Irritable, labile, paranoid DIAGNOSES: Schizoaffective disorder per hx Tobacco use disorder ASSESSMENT: No change pain patient continues to be paranoid, refusing medications, feeling that everybody is out to get her include police, mental health services. Retention hearing was held today, was determined that she does not meet criteria for safe discharge and will be retained. MANAGEMENT PLAN: No change, patient needs continued stay in hospital for safety to be started on medications and stabilized for psychosis, pending TOO hearing. Continue with therapeutic treatments on the unit. TIME SPENT: 25 minutes. Vital Signs Vital Signs Date Time Temp Pulse Resp B/P (MAP) Pulse Ox O2 Delivery O2 Flow Rate FiO2 06/26/21 07:29 98.3 75 20 155/77 (103) 94 Room Air Current Medications Current Medications Medications (Trade) Dose Ordered Sig/Master Route PRN Reason Start Time Stop Time Status Last Admin Dose Admin Acetaminophen (Tylenol Tab) 650 mg Q6HP PRN PO HEADACHE or MILD DISCOMFORT 06/15/21 21:30 Al Hydrox/Mg Hydrox/Simethicone (Mylanta) 30 ml Q4HP PRN PO HEARTBURN/INDIGESTION 06/15/21 21:30 Magnesium Hydroxide (Milk Of Magnesia) 30 ml DAILYPRN PRN PO CONSTIPATION 06/15/21 21:30 Nicotine (Nicoderm Cq 21mg) 1 patch DAILY TD 06/16/21 09:00 Olanzapine (ZyPREXA ZYDIS) 10 mg Q4HP PRN PO AGITATION/ANXIETY 06/15/21 21:30 Paliperidone (Invega) 3 mg QHS PO 06/16/21 21:00 Cancel Risperidone (RisperDAL) 1 mg QHS PO 06/16/21 21:00 Trazodone HCl (Desyrel) 50 mg QHSP PRN PO INSOMNIA 06/15/21 21:30 Allergies Coded Allergies: quetiapine (Unverified Allergy, Unknown, 06/15/21) TIM SCHMITT MD Jun 26, 2021 14:59
[2021-06-26 18:54] VITALS: BP 134/64
[2021-06-26] MEDS: risperiDONE 1 MG TAB PO SCH (21:19)
[2021-06-27 06:27] VITALS: BP 152/83
[2021-06-27] MEDS: NICOTINE 21MG/24HR 1 EA TRANSDERMAL TD SCH (08:05)
[2021-06-27] MEDS: risperiDONE 1 MG TAB PO SCH (21:17)
[2021-06-28 07:31] VITALS: BP 131/68
[2021-06-28] MEDS: NICOTINE 21MG/24HR 1 EA TRANSDERMAL TD SCH (08:40)
[2021-06-28 19:12] VITALS: BP 158/74
[2021-06-28] MEDS: risperiDONE 1 MG TAB PO SCH (20:02)
[2021-06-29 06:46] VITALS: BP 146/85
[2021-06-29] MEDS: NICOTINE 21MG/24HR 1 EA TRANSDERMAL TD SCH (09:00)
[2021-06-29] MEDS: risperiDONE 1 MG TAB PO SCH ×2 (09:25→20:11)
--- NOTE | 2021-06-29 09:28 | MHIPNPDOC ---
[facility] Progress Note Progress Note DATE OF SERVICE: 06/29/21 HISTORY: Patient is a 50 -year-old , female, who why a history of bipolar disorder, schizoaffective disorder and multiple inpatient admissions to [facility], last admission Apr 24 2018 for 4-5 days for acute psychosis. Patient is tangential, disorganized and paranoid on interview. States she called the police to report a crime, "it's too entailed for you to listen to, has to do with origins of covid, the police selling secrets". "There was a terrorist cell operating out of [facility]". Patient goes on to discuss multiple conspiracy theories and poorly cooperative to interview. Interval: Encouraged to attend groups, continues to be paranoid but is less irritable and agitated more calm on interview than previous days since starting Risperdal 1 mg nightly, made aware of need for medications to stabilize condition, despite this states that nobody believes her story and that the police are still out to get her and steal her possessions. Currently denies suicidal homicidal ideations. When asked about side effects from medications states" none that I know of". Reports sleep is 9 hours last night, no acute physical complaints. VITAL SIGNS: See below. NEW TEST RESULTS: none, see below CURRENT MEDICATIONS: See below. MENTAL STATUS EXAMINATION: Patient is a 50-year old female, who is presently in no acute distress, walking in the hallway, wears mask, elevated BMI, glasses short dark hair in hospital clothing. Speech: No change, normal rate, increased volume, spontaneous, increased amount, difficult to interrupt Language skills are poor Thought processes including: Circumstantial Thought content: Not endorsing SI, intent or plan. Not endorsing HI, intent or plan Abstract reasoning, and computation: Fair description of associations: Fair Description of abnormal or psychotic thoughts: Less paranoid, denies hallucinations Judgment: Poor Insight: Improving Orientation: x3 Recent and remote memory: Fair Attention span and concentration: Fair Language: kenyan Fund of knowledge: average Mood: "Not that much and I can do" Affect: Less irritable, less labile and paranoid DIAGNOSES: Schizoaffective disorder per hx Tobacco use disorder ASSESSMENT: Patient continues to be paranoid, but is less irritable and agitated previous days, denies medication side effects and is currently 0 today on interview, eye contact is less intense, was able to sit through an interview without getting highly irritable or agitated, has been taking medications, but is not going to groups and was encouraged to do so, if continues to improve possible discharge Tuesday. MANAGEMENT PLAN: Increase Risperdal from 1 mg nightly to 1 mg twice daily for psychosis, TOO pursuit held, patient started to take her medications, will need more time to evaluate if consistent with medications and if symptoms continue to improve, continue with supportive therapeutic treatments on the unit. TIME SPENT: 20 minutes. Vital Signs Vital Signs Date Time Temp Pulse Resp B/P (MAP) Pulse Ox O2 Delivery O2 Flow Rate FiO2 06/29/21 06:46 98.2 88 16 146/85 (105) 94 Room Air Current Medications Current Medications Medications (Trade) Dose Ordered Sig/Master Route PRN Reason Start Time Stop Time Status Last Admin Dose Admin Acetaminophen (Tylenol Tab) 650 mg Q6HP PRN PO HEADACHE or MILD DISCOMFORT 06/15/21 21:30 Al Hydrox/Mg Hydrox/Simethicone (Mylanta) 30 ml Q4HP PRN PO HEARTBURN/INDIGESTION 06/15/21 21:30 Magnesium Hydroxide (Milk Of Magnesia) 30 ml DAILYPRN PRN PO CONSTIPATION 06/15/21 21:30 Nicotine (Nicoderm Cq 21mg) 1 patch DAILY TD 06/16/21 09:00 Olanzapine (ZyPREXA ZYDIS) 10 mg Q4HP PRN PO AGITATION/ANXIETY 06/15/21 21:30 06/26/21 15:35 Paliperidone (Invega) 3 mg QHS PO 06/16/21 21:00 Cancel Risperidone (RisperDAL) 1 mg BID PO 06/29/21 09:00 Risperidone (RisperDAL) 1 mg QHS PO 06/16/21 21:00 06/29/21 07:53 DC 06/28/21 20:02 Trazodone HCl (Desyrel) 50 mg QHSP PRN PO INSOMNIA 06/15/21 21:30 Allergies Coded Allergies: quetiapine (Unverified Allergy, Unknown, 06/15/21) TIM SCHMITT MD Jun 29, 2021 09:28
[2021-06-29 16:17] VITALS: BP 124/65
[2021-06-30 06:44] VITALS: BP 141/69
[2021-06-30] MEDS: risperiDONE 1 MG TAB PO SCH ×2 (08:56→20:16)
[2021-06-30] MEDS: NICOTINE 21MG/24HR 1 EA TRANSDERMAL TD SCH (08:57)
--- NOTE | 2021-06-30 12:20 | MHIPNPDOC ---
[facility] Progress Note Progress Note DATE OF SERVICE: 06/30/21 HISTORY: Patient is a 50 -year-old , female, who why a history of bipolar disorder, schizoaffective disorder and multiple inpatient admissions to [facility], last admission Apr 24 2018 for 4-5 days for acute psychosis. Patient is tangential, disorganized and paranoid on interview. States she called the police to report a crime, "it's too entailed for you to listen to, has to do with origins of covid, the police selling secrets". "There was a terrorist cell operating out of [facility]". Patient goes on to discuss multiple conspiracy theories and poorly cooperative to interview. Interval: Patient has been attending some groups when available, on interview today is no longer appearing overtly paranoid, appears embarrassed about admission, when asked about the system being against her states "I don't know what that was about", no longer appearing agitated or highly irritable, denies SI and HI. At points was laughing during conversation appropriately. When asked about her mood states "it's probably you know middle of the road", thought process more linear and logical, sleeps 8 hours reportedly. No acute physical complaints. VITAL SIGNS: See below. NEW TEST RESULTS: none, see below CURRENT MEDICATIONS: See below. MENTAL STATUS EXAMINATION: Patient is a 50-year old female, who is presently in no acute distress, walking in the hallway, wears mask, elevated BMI, glasses short dark hair in hospital clothing. Speech: No change, normal rate, increased volume, spontaneous, increased amount, difficult to interrupt Language skills are poor Thought processes including: More linear and logical, understands needs to get her car in [place], [place] Thought content: Not endorsing SI, intent or plan. Not endorsing HI, intent or plan Abstract reasoning, and computation: Improved description of associations: Fair Description of abnormal or psychotic thoughts: No longer appearing overtly paranoid, denies hallucinations Judgment: Poor Insight: Improving Orientation: x3 Recent and remote memory: Fair Attention span and concentration: Fair Language: spanish Fund of knowledge: average Mood: "[id number]-ma-ymq-road, 5 out of 10" Affect: More calm, euthymic, full and laughs at times appropriately DIAGNOSES: Schizoaffective disorder per hx Tobacco use disorder ASSESSMENT: Patient compliant with medication, appears to be less paranoid and responding well to medication with adequate sleep and appetite, attending groups when available, more appropriate and less irritable and agitated on interview with improved insight and judgment, denies suicidal or homicidal ideations and is agreeable to possible discharge tomorrow, no acute physical complaints or medication side effects reported. MANAGEMENT PLAN: Was converted to 2 PC, continue Risperdal from 1 mg twice daily for psychosis, TOO pursuit held, patient started to take her medications, will need more time to evaluate if consistent with medications and if symptoms co ntinue to improve, continue with supportive therapeutic treatments on the unit. TIME SPENT: 25 minutes. Vital Signs Vital Signs Date Time Temp Pulse Resp B/P (MAP) Pulse Ox O2 Delivery O2 Flow Rate FiO2 06/30/21 06:44 97.6 75 16 141/69 (93) 06/29/21 16:17 94 Room Air Current Medications Current Medications Medications (Trade) Dose Ordered Sig/Master Route PRN Reason Start Time Stop Time Status Last Admin Dose Admin Acetaminophen (Tylenol Tab) 650 mg Q6HP PRN PO HEADACHE or MILD DISCOMFORT 06/15/21 21:30 Al Hydrox/Mg Hydrox/Simethicone (Mylanta) 30 ml Q4HP PRN PO HEARTBURN/INDIGESTION 06/15/21 21:30 Magnesium Hydroxide (Milk Of Magnesia) 30 ml DAILYPRN PRN PO CONSTIPATION 06/15/21 21:30 Nicotine (Nicoderm Cq 21mg) 1 patch DAILY TD 06/16/21 09:00 Olanzapine (ZyPREXA ZYDIS) 10 mg Q4HP PRN PO AGITATION/ANXIETY 06/15/21 21:30 06/26/21 15:35 Paliperidone (Invega) 3 mg QHS PO 06/16/21 21:00 Cancel Risperidone (RisperDAL) 1 mg BID PO 06/29/21 09:00 06/30/21 08:56 Risperidone (RisperDAL) 1 mg QHS PO 06/16/21 21:00 06/29/21 07:53 DC 06/28/21 20:02 Trazodone HCl (Desyrel) 50 mg QHSP PRN PO INSOMNIA 06/15/21 21:30 Allergies Coded Allergies: quetiapine (Unverified Allergy, Unknown, 06/15/21) TIM SCHMITT MD Jun 30, 2021 12:20
[2021-06-30 16:26] VITALS: BP 131/89
[2021-07-01 06:50] VITALS: BP 126/73
[2021-07-01] MEDS: NICOTINE 21MG/24HR 1 EA TRANSDERMAL TD SCH (09:00)
[2021-07-01] MEDS: risperiDONE 1 MG TAB PO SCH ×2 (09:16→20:34)
--- NOTE | 2021-07-01 13:15 | MHIPNPDOC ---
[facility] Progress Note Progress Note DATE OF SERVICE: 07/01/21 HISTORY: Patient is a 50 -year-old , female, who why a history of bipolar disorder, schizoaffective disorder and multiple inpatient admissions to [facility], last admission Apr 24 2018 for 4-5 days for acute psychosis. Patient is tangential, disorganized and paranoid on interview. States she called the police to report a crime, "it's too entailed for you to listen to, has to do with origins of covid, the police selling secrets". "There was a terrorist cell operating out of [facility]". Patient goes on to discuss multiple conspiracy theories and poorly cooperative to interview. Interval: Patient is less irritable today, on interview continues to states she will not signed documentation but is agreeable to social work scheduling appointments with [facility] per her request. Social work working on developing safe discharge plan, patient continues to be taking medications including Risperdal 2 mg twice daily, reports tolerated well without side effects no acute physical complaints. Aims scoring remained 0 today on interview. Was seen eating lunch tray in her room with normal appetite sleep continues to remain "good". Agreeable to possible discharge tomorrow in context of medication changes and if continues to have reduction in symptoms of paranoia, denies SI and HI. Was encouraged to attend groups. VITAL SIGNS: See below. NEW TEST RESULTS: none, see below CURRENT MEDICATIONS: See below. MENTAL STATUS EXAMINATION: Patient is a 50-year old female, who is presently in no acute distress, walking in the hallway, wears mask, elevated BMI, glasses short dark hair in hospital clothing. Speech: No change, normal rate, increased volume, spontaneous, increased amount, difficult to interrupt Language skills are poor Thought processes including: More linear and logical, goal-directed Thought content: Denies SI, intent or plan, denies HI, intent or plan Abstract reasoning, and computation: Intact description of associations: Fair Description of abnormal or psychotic thoughts: Less paranoid Judgment: Fair Insight: Fair Orientation: x3 Recent and remote memory: Intact Attention span and concentration: Fair Language: latvian Fund of knowledge: average Mood: "I am fine" Affect: Continues to be more calm, less paranoid, euthymic with some mild irritability DIAGNOSES: Schizoaffective disorder per hx Tobacco use disorder ASSESSMENT: Patient's paranoia continues to be reduced on medications including Risperdal, no longer discussing conspiracy theories about the police and agreeable to outpatient appointment, has to have an appointment scheduled with [facility]/she can continue her treatment outpatient. No acute physical complaints, no medication side effects. Continues to be agreeable with safety planning, outpatient support and scheduling, continues to be compliant medications and continues to improve likely discharge tomorrow. MANAGEMENT PLAN: Continues to be on a 2 PC involuntary status, continue Risperdal from 2 mg twice daily for psychosis, TOO pursuit held, patient compliant with her medications, continue with supportive therapeutic treatments on the unit. TIME SPENT: 20 minutes. Vital Signs Vital Signs Date Time Temp Pulse Resp B/P (MAP) Pulse Ox O2 Delivery O2 Flow Rate FiO2 07/01/21 06:50 98.1 69 18 126/73 (90) 96 Room Air Current Medications Current Medications Medications (Trade) Dose Ordered Sig/Master Route PRN Reason Start Time Stop Time Status Last Admin Dose Admin Acetaminophen (Tylenol Tab) 650 mg Q6HP PRN PO HEADACHE or MILD DISCOMFORT 06/15/21 21:30 Al Hydrox/Mg Hydrox/Simethicone (Mylanta) 30 ml Q4HP PRN PO HEARTBURN/INDIGESTION 06/15/21 21:30 Magnesium Hydroxide (Milk Of Magnesia) 30 ml DAILYPRN PRN PO CONSTIPATION 06/15/21 21:30 Nicotine (Nicoderm Cq 21mg) 1 patch DAILY TD 06/16/21 09:00 Olanzapine (ZyPREXA ZYDIS) 10 mg Q4HP PRN PO AGITATION/ANXIETY 06/15/21 21:30 06/26/21 15:35 Paliperidone (Invega) 3 mg QHS PO 06/16/21 21:00 Cancel Risperidone (RisperDAL) 1 mg BID PO 06/29/21 09:00 06/30/21 12:55 DC 06/30/21 08:56 Risperidone (RisperDAL) 1 mg QHS PO 06/16/21 21:00 06/29/21 07:53 DC 06/28/21 20:02 Risperidone (RisperDAL) 2 mg BID PO 06/30/21 21:00 07/01/21 09:16 Trazodone HCl (Desyrel) 50 mg QHSP PRN PO INSOMNIA 06/15/21 21:30 Allergies Coded Allergies: quetiapine (Unverified Allergy, Unknown, 06/15/21) TIM SCHMITT MD Jul 01, 2021 13:15
[2021-07-01 16:15] VITALS: BP 127/75
[2021-07-02 06:13] VITALS: BP 140/85
[2021-07-02] MEDS ORDERED: RISP2TAB32 PO ×2 (08:01→08:02)
[2021-07-02] MEDS ORDERED: NICO21PAT TD (08:01)
[2021-07-02] MEDS ORDERED: ALBUTEROL 90 MCG/ACT 8GM HFA INHALER INH PRN (08:20)
[2021-07-02] MEDS: risperiDONE 1 MG TAB PO SCH (08:39)
[2021-07-02] MEDS: NICOTINE 21MG/24HR 1 EA TRANSDERMAL TD SCH (08:42)
[2021-07-02] MEDS ORDERED: ALBU8.5H INH (09:00)
--- NOTE | 2021-07-02 14:13 | MHDSPDOC ---
[facility] Discharge Summary Discharge Summary DATE OF ADMISSION: Jun 15, 2021 at 21:27 DATE OF DISCHARGE: Jul 02, 2021 at 10:52 Discharge diagnoses: Schizoaffective disorder, unspecified type Tobacco use disorder Reason for admission: Patient is a 50 -year-old , female, who why a history of bipolar disorder, schizoaffective disorder and multiple inpatient admissions to [facility], [facility] 2018 for 4-5 days for acute psychosis. Per PSA evaluation patient went to the library and contacted police, seeming delusional and floridly psychotic per phone conversation, patient had been reporting theories of human trafficking theft, terrorism in [place], police arrived to the library and patient took off in her car with police pursuit due to a suspended license, would not picker/puller and eventually police were able to apprehend the patient stated she was going to and tore up [place], was disorganized and grossly psychotic. In the emergency room patient received 10 mg p.o. olanzapine, patient is tangential, disorganized and paranoid on interview. States she called the police to report a crime, "it's too entailed for you to listen to, has to do with origins of [employer], the police selling secrets". "There was a terrorist cell operating out of [facility]". Patient goes on to discuss multiple conspiracy theories and poorly cooperative to interview. Patient was unclear if she was following up with her long-acting injectable paliperidone to 234 mg. Vital signs: See below Consultants involved: See medical H&P by hospitalist Treatment and progress on the unit: Patient [facility] on a 9.39 legal status and was afforded the following treatment modalities: 1. Individual therapy 2. Group therapy 3. Medication management 4. Milieu therapy 5. Safe environment Hospital course: Patient was [facility] on a 9.39 legal status. Was medically cleared prior to coming up to the [facility]. Received 1 dose 10 mg olanzapine in the emergency room prior to arrival, labs were done and unremarkable, patient was started on 1 mg nightly of risperidone and discon tinued paliperidone due to his lack of insurance coverage, patient refused this medication during course of stay and remained paranoid and disorganized has been reporting multiple conspiracy theories, that the police were out to get her, the people were stealing things from her and that no one believed her situation, would become irritable in conversation but denied suicidal or homicidal ideations. During stay per chart review patient had endorsed multiple bizarre, grandiose delusions during stay such as having "lunch with Bin laden", ex- partner being best friends at the [facility] and out to harm her, reported terrorists operating of [place] [facility] to multiple nursing staff and myself. Patient however remained highly paranoid and posed a risk for safety to self and others. Court hearing was carried out for retention on June 26, 2021 and was determined by a middleware solutions architect the patient did meet criteria for continued involuntary admission. Patient started to take risperidone 1 mg twice daily which was titrated up to 2 mg twice daily for psychosis voluntarily, so treatment over objection hearing was not held. Patient found medications benefi cial and tolerated them well. With treatment patient was no longer paranoid, calmer and pleasant on interview, no longer hostile and highly agitated/irritable. Sleep remains stable at 7 to 9 hours nightly, was able to take care of basic and instrumental ADLs. Mood improved, anxiety and intrusive thoughts also improved with treatment. Patient attended multiple groups during stay. Patient symptoms improved with treatment. On day of discharge patient denied depression, anxiety, insomnia, suicidal or homicidal ideations, intent or plan, hallucinations, delusions. Patient was discharged home with follow-up. Patient felt safe for discharge. Was offered continued stay on voluntary admission but refused. Prior to discharge patient had been refusing covid-19 testing despite explained exposure risk and putting herself further patient at risk, but was agreeable to private room with isolation. Patient was prescribed nicotine patch during stay for nicotine cravings but refused. Discharge assessment: On today's interview patient is alert and oriented, dressed appropriately. Hygiene and grooming is well-kept and wearing glasses. He is pleasant and bubbly on approach and well engaged in interview. Denies any hallucinations, delusions, paranoia, intrusive thoughts, impulsive thoughts, denies symptoms of cortney such as: grandiosity, behavioral indiscretion, lack of sleep, risky behavior, is cordial with staff and agreeable to discharge. Patient declines further hospitalization on voluntary status, patient encouraged to return the hospital if symptoms worsen or change and encouraged to call unit if they feel they need provider's questions to be answered or help with medications or care. Safety plan was carried out by social work and follow-up appointment with mental health made per patient request. Mental status: Patient is a 50-year old female, who is presently in no acute dist ress, sitting in a chair, wears mask, elevated BMI, glasses short dark hair in hospital clothing, appears stated age. Speech: normal rate, increased volume, spontaneous, average amount, easily interrupted Language skills are intact Thought processes including: More linear and logical, goal-directed Thought content: Denies suicidal ideation, intent or plan, denies homicidal ideation, intent or plan Abstract reasoning, and computation: Intact description of associations: Normal Description of abnormal or psychotic thoughts: Not observed, denies, no longer paranoid Judgment: Fair Insight: Fair Orientation: x4 Recent and remote memory: Intact Attention span and concentration: Fair Language: croatian Fund of knowledge: average Mood: "good" Affect: Smiles, laughs appropriately, euthymic, bubbly, mood congruent, appropriate Medications on discharge: see medication reconciliation: CSSRS on discharge: Wish to be : No nonspecific active suicidal thoughts: No lifetime attempts: 0 interrupted attempts: 0 aborted attempts: 0 preparatory acts or behavior: None Taking into consideration safety state, status, safety plan, protective factors, modifiable, non-modifiable risk factors patient is at chronically elevated risk on discharge for suicide according to [place] suicide evaluation. PLAN/FOLLOWUP ARRANGEMENTS: Follow Up Care Education Label * Mental Health Appt 1 * Mental Health [facility] * Established With This Provider No NEW PATIENT * Therapist DUY * Date Jul 06, 2021 * Time 09:00 * Address of Clinic or Practice [address] [place] [address] * * Additional information PATIENT NEEDS TO ARRIVE AT 8:30 FOR INTAKE PAPERWORK. Follow Up Care Education Label * Medical * Additional information DECLINED TO HAVE MEDICAL FOLLOW UP. Total time: 35 minutes ETOH/Disorder Med Rx ETOH/DRUG DISORDER RX: Offrd @ d/c & pt refused Vital Signs/I&Os Vital Signs Date Time Temp Pulse Resp B/P (MAP) Pulse Ox O2 Delivery O2 Flow Rate FiO2 07/02/21 06:13 97.7 61 16 140/85 (103) 94 Room Air Medications Scheduled Fluticasone/Vilanterol (Breo Ellipta 200-25 Mcg INH) 1 Inh Inh, 1 PUFF INH DAILY, (Reported) Nicotine (Nicotine Patch) 21 Mg Patch.td24, 1 PATCH TD DAILY for nicotine withdrawals, #7 Risperidone (Risperdal) 2 Mg Tablet, 1 TAB PO BID for psychosis for 7 Days, #14 Scheduled PRN Albuterol Sulfate (Albuterol Sulfate Hfa) 8.5 Gm Hfa.aer.ad, 2 PUFFS INH PRN PRN for BRONCHOSPASM for 30 Days, #1 Allergies Coded Allergies: quetiapine (Unverified Allergy, Unknown, 06/15/21) TIM SCHMITT MD Jul 02, 2021 14:13
== END 2021-07-02 10:52 | disposition home or self-care (01) | DRG 885 ==
LOC: M ED 17:23 → M ED INP 21:27 → M PSY 06-16 03:13
PROVIDERS: ADMIT Student in an Organized Health Care Education/Training Program; ATTEND Student in an Organized Health Care Education/Training Program
DX: F25.9 Schizoaffective disorder, unspecified (principal); F17.210 Nicotine dependence, cigarettes, uncomplicated; Z20.822 Contact with and (suspected) exposure to COVID-19; Z79.899 Other long term (current) drug therapy; Z88.8 Allergy status to other drugs, medicaments and biological substances; Z91.14 Patient's other noncompliance with medication regimen